=== PATIENT | female | born 2000 | race Caucasian/White ===

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

== ENCOUNTER 2023-08-17 10:00 | Outpatient (REF) | payer MEDICAID, SELFPAY ==
[2023-08-17 11:24] LABS: MANUAL DIFF FLAG NO
[2023-08-17 11:31] LABS: Basophils Percent Auto 0.6 % (0-2); Eosinophils Percent Auto 0.4 % (0-4); Hematocrit 39.9 % (37.0-47.0); Hemoglobin 13.7 g/dl (12.0-16.0); Imm Gran Abs Auto 0.02 X10*3/uL (0.00-0.03); Imm Gran Pct Auto 0.3 % (0.0-0.4); Lymphocytes Absolute Auto 1.6 X10*3/uL (1.2-4.9); Lymphocytes Percent Auto 22.8 % (20-40); Mean Corpuscular HGB Conc 34.3 g/dl (31.0-35.0); Mean Corpuscular Hemoglobin 31.4 pg (27.0-33.0); Mean Corpuscular Volume 91.3 fL (80.0-98.0); Mean Platelet Volume 9.8 fL (9.4-12.3); Monocytes Absolute Auto 0.5 X10*3/uL (0.1-1.2); Monocytes Percent Auto 7.5 % (2-11); Neutrophils Absolute Auto 4.9 x10*3/uL (2.0-8.3); Neutrophils Percent Auto 68.4 % (45-73); Platelet Count 211 X10*3/uL (160-400); Red Blood Count 4.37 X10*6/uL (4.20-5.50); Red Cell Distribution Width 11.9 % (11.0-16.0); White Blood Count 7.1 X10*3/uL (4.8-10.8)
[2023-08-17 11:40] LABS: Estimated Average Glucose 97 mg/dL
[2023-08-17 12:05] LABS: Syphilis Screen Nonreactive (Nonreactive)
[2023-08-17 12:06] LABS: HBS Num1 0.96 mIU/mL (0-7.99); HBc Num1 0.09 S/CO (0.00-0.79); HBsAGNum1 0.28 S/CO (0.00-0.99); HIV AB/AG Nonreactive (Nonreactive); HIV Num 1 0.07 S/CO (0.00-0.99); Hepatitis B Core Antibody Nonreactive (Nonreactive); Hepatitis B Surface Antigen Negative (Negative); ~HepC Num1 0.08 S/CO (0.00-0.79); ~Hepatitis B Surface Antibody NONREACTIVE (Nonreactive); ~Hepatitis C Antibody Nonreactive (Nonreactive)
[2023-08-17 12:09] LABS: Alanine Aminotransferase 12 U/L (0-31); Albumin Level 4.6 g/dL (3.5-5.0); Alkaline Phosphatase 62 U/L (39-117); Anion Gap 11 (12-20); Aspartate Amino Transferase 14 U/L (5-31); Blood Urea Nitrogen 11 mg/dL (9-16); Calcium 9.7 mg/dL (8.4-10.2); Carbon Dioxide 26 mmol/L (22-29); Chloride 105 mmol/L (96-108); Estimated Glomerular Filt Rate > 60; Glucose Random 85 mg/dL (60-115); Potassium 3.7 mmol/L (3.3-5.1); Sodium 138 mmol/L (135-145); TSH reflex Free T4 1.71 uIU/mL (0.32-4.0); Total Protein 7.5 g/dL (6.5-8.0)
[2023-08-17 13:18] LABS: CT PCR NOT DETECTED (Not Detect.); NG PCR NOT DETECTED (Not Detect.)
== END 2023-08-17 10:01 | disposition home or self-care (01) ==
LOC: HO.HHCL 10:00
PROVIDERS: Visit Provider Student in an Organized Health Care Education/Training Program
DX: Z00.00 Encounter for general adult medical examination without abnormal findings (principal); Z11.3 Encounter for screening for infections with a predominantly sexual mode of transmission
CPT/HCPCS: 0353U; 80053; 83036; 84443; 85025; 86704; 86706; 86780; 86803; 87340; 87389

== ENCOUNTER 2023-08-17 16:05 | Outpatient (REF) | payer MEDICAID, SELFPAY ==
[2023-08-18 02:45] LABS: CT PCR NOT DETECTED (Not Detect.); NG PCR NOT DETECTED (Not Detect.)
== END 2023-08-17 16:06 | disposition home or self-care (01) ==
LOC: HO.LNP 16:05
PROVIDERS: Visit Provider Student in an Organized Health Care Education/Training Program
DX: Z00.00 Encounter for general adult medical examination without abnormal findings (principal); Z11.3 Encounter for screening for infections with a predominantly sexual mode of transmission
CPT/HCPCS: 0353U

== ENCOUNTER 2023-10-05 12:35 | Outpatient (REF) | payer MEDICAID, SELFPAY ==
[2023-10-07 03:08] LABS: Rubella IgG Antibody 2.15 Index
== END 2023-10-05 12:36 | disposition home or self-care (01) ==
LOC: HO.CHCLDS 12:35
PROVIDERS: Visit Provider Registered Nurse
DX: Z00.00 Encounter for general adult medical examination without abnormal findings (principal)
CPT/HCPCS: 36415; 86735; 86762; 86765; 86787

== ENCOUNTER → 2023-10-13 14:26 | Outpatient (BNVA) | payer OTHER, SELFPAY | PROVIDERS: PCP Registered Nurse; Visit Provider Physician Assistant Medical | DX: S29.012A Strain of muscle and tendon of back wall of thorax, initial encounter (principal); X50.0XXA Overexertion from strenuous movement or load, initial encounter | CPT/HCPCS: 99203 ==

== ENCOUNTER → 2023-10-16 11:42 | Outpatient (BNVA) | payer OTHER, SELFPAY | PROVIDERS: PCP Registered Nurse; Visit Provider Physician Assistant Medical | DX: S29.012A Strain of muscle and tendon of back wall of thorax, initial encounter (principal); X58.XXXA Exposure to other specified factors, initial encounter | CPT/HCPCS: 99213 ==

== ENCOUNTER 2023-10-24 11:53 | Outpatient (RCR) | payer MEDICAID, SELFPAY ==
--- NOTE | 2023-10-24 14:04 | MHC.PT.EP ---
[facility] [place] Office [place] Office [place] Office [address] Ángel Vela [address] [phone] F: [phone] F: [phone] F: [phone] F: [phone] Physical Therapy Plan of Care Date of Evaluation: 10/24/23 Date of Surgery: N/A Diagnosis: chronic thoracic back pain (RL) Assessment: pt is a 23 y/o female presenting to physical therapy w/ referring diagnosis of chronic thoracic pain. Impairments include pain, decreased range of motion, decreased strength, impaired functional mobility, impaired postural awareness, and altered ambulation mechanics. pt is a good candidate for skilled PT due to age, potential remediation of impairments, typical disease/condition progression and prognosis, comorbidities, and motivation. pt would benefit from skilled PT intervention to provide a tailored strengthening and stretching exercise program, functional training, gait training, postural re-training, neuromuscular re-education, modalities as needed for pain, equipment safety demonstration. Frequency and Duration: The patient will be seen 2x/wk for 5 wks Short Term Goals: pt will be I w/ HEP to promote self-management of condition. pt will improve thoracolumbar AROM rotation to at least 75% to promote ease w/ work-related tasks. Graphotype Operator Goals: pt will demo neutral spine w/ lifting w/o verbal cueing to promote neutral spine w/ patient care activities at work (transfers, boosting, etc.) pt will improve B middle trap and rhomboid strength by at least 1 MMT grade to promote ease in prolonged standing for improved ADL tolerance. Treatment Plan: Modalities to reduce pain, spasms and effusion. Manual therapy to restore motion and function. Therapeutic exercise to improve strength and flexibility. Neuromuscular re-education for posture and balance. Therapeutic activities to return to functional activities of daily living. Electronically signed by: Herminia Mohamud PT, DPT Please sign and return to therapist. Thank you for your referral.
--- NOTE | 2023-11-03 13:46 | MHC.PT.DC ---
[facility] [place] Office [place] Office [place] Office [address] Ángel Vela [address] [phone] F: [phone] F: [phone] F: [phone] F: [phone] Physical Therapy Discharge Report Diagnosis: chronic thoracic back pain (RL) Date of Surgery: N/A Date of Evaluation: 10/24/23 Date of Discharge: 11/03/23 Treatments to Date: 1 Cancellations to Date: 0 No Shows to Date: 3 Discharge Status: Visit Non-compliance Discharge Summary: Pt attended PT eval only. No showed three consecutive. D/C due to non-compliance. Electronically signed by: Herminia Mohamud PT, DPT Please sign and return to therapist. Thank you for your referral.
== END 2023-11-03 13:46 | disposition home or self-care (01) ==
LOC: HO.PT 11:53
PROVIDERS: PCP Registered Nurse; Visit Provider Registered Nurse
DX: M54.6 Pain in thoracic spine (principal); G89.29 Other chronic pain
CPT/HCPCS: 97140; 97161

== ENCOUNTER 2024-05-28 17:27 | Outpatient (REF) | payer MEDICAID, SELFPAY ==
--- OUTSIDE RECORDS SUMMARY | 2024-05-28 19:33 | XMS_ITS | Encounter Summary ---
Author Organization [employer] Address [address] [place] [address] Care Team Providers Care Jigger Artisan Name Role Phone Imelda Monroy GUIDE RAIL CLEANER Primary Care Provider [phone] Encounter Details Date Type Department Care Team (Latest Contact Info) Description 05/28/2024 Travel Social History Tobacco Use Types Packs/Day Years Used Date Smoking Tobacco: Never Smokeless Tobacco: Never Alcohol Use Standard Drinks/Week Comments Never 0 (1 standard drink = 0.6 oz pur e alcohol) Depression Answer Date Recorded Patient Health Questionnaire-9 Score 5 01/22/2024 Patient Health Questionnaire-9 Score 5 01/22/2024 Last PHQ-9: Questionnaire Data Not on file 1 03/23/2023 Housing Stability Answer Date Recorded What is your housing situation today? I have kiley núñez 01/23/[address] you li ve. Do you have problems with any of the following? None of the above 01/23/2023 Food Insecurity Answer Date Recorded Within the past 12 months, y ou worried that your food would run out before you got money to buy more: Never True 01/23/2023 Within the past 12 months,th e food you bought just didn't last and you didn't have enough money to get more: Never True 08/2022 Transportation Answer Date Recorded In the past 12 months, has l ack of transportation kept you from medical appts, meetings, work or from getting things needed for daily living? No 01/23/2023 Utilities Answer Date Recorded In the past 12 months, has t he electric, gas, oil or water company threatened to shut off services in your home? No 01/23/2023 Depression Answer Date Recorded Patient Health Questionnaire-2 Score 0 01/22/2024 Comments Unknown Sex and Gender Information Value Date Recorded Sex Assigned at Female 01/17/2022 10:17 AM EDT Legal Sex Female 10:17 AM EDT Gender Identity Female 01/17/2022 10:17 AM EDT Sexual Orientation Straight 01/17/2022 10 :17 AM EDT documented as of this encounter Plan of Treatment Not on file documented as of this encounter Visit Diagnoses Not on filedocumented in this encounter Additional Health Concerns Assessment Noted Time PHQ-9 Depression Total Score: 5 01/22/20 24 3:40 PM EST documented as of this encounter Care Teams Jigger Artisan Relationship Specialty Start Date End Date Imelda Monroy FNP [address] [place] [address] PCP - General Family Medicine 06/07/21 documented as of this encounter
--- OUTSIDE RECORDS SUMMARY | 2024-05-28 19:33 | XMS_ITS | Encounter Summary ---
Author Organization [employer] Address [address] [facility] [address] [place] [address] Care Team Providers Care Assembler Installer General Name Role Phone Imelda Monroy Primary Care Provider [phone] Reason for Visit * Reason Onset Date Comments Lab Orders 09/14/2023 Encounter Details Date Type Department Care Team ([facility] st Contact Info) Description 09/14/2023 Telephone [facility] [address] [place], [place] [phone] Imelda Monroy FNP [address] [place] [address] Lab Orders Social History Tobacco Use Types Packs/Day Years Used Date Smoking Tobacco: Never Smokeless Tobacco: Never Alcohol Use Standard Drinks/Week Comments Never 0 (1 standard drink = 0.6 oz pur e alcohol) Depression Answer Date Recorded Patient Health Questionnaire-9 Score 3 08/17/2023 Patient Health Questionnaire-9 Score 3 08/17/2023 Last PHQ-9: Questionnaire Data Not on file 0 08/17/2023 Housing Stability Answer Date Recorded What is [...] Date Recorded Patient Health Questionnaire-2 Score 0 08/17/2023 Comments Unknown Sex and Gender Information Value Date Recorded Sex Assigned at Female 01/17/2022 10:17 AM EDT Legal Sex Female 10:17 AM EDT Gender Identity Female 01/17/2022 10:17 AM EDT Sexual Orientation Straight 01/17/2022 10 :17 AM EDT documented as of this encounter Miscellaneous Notes * Telephone Encounter - Wing Ania RN - 09/15/2023 1:35 PM EDT Tc to pt regarding clarification on what blood test she is requesting. Unable to reach pt, left message for pt to call back. * Telephone Encounter - Lesly Akhtar - 09/14/2023 3:53 PM EDT Tc from pt requesting a blood titer test. Please contact pt at [phone] documented in this encounter Plan of Treatment Not on file documented as of this encounter Visit Diagnoses Not on filedocumented in this encounter Additional Health Concerns Assessment Noted Time PHQ-9 Depression Total Score: 3 08/17/19 24 9:09 AM EDT documented as of this encounter Care Teams Assembler Installer General Relationship Specialty Start Date End Date Imelda Monroy FNP [address] [place] [address] PCP - General Family Medicine 06/07/21 documented as of this encounter
--- OUTSIDE RECORDS SUMMARY | 2024-05-28 19:33 | XMS_ITS | Encounter Summary ---
Author Organization [employer] Address [address] [place] [address] Care Team Providers Care Deposit Clerk Name Role Phone Imelda Monroy ROOFING PLANT SUPERVISOR Primary Care Provider [phone] Encounter Details Date Type Department Care Team (Latest Contact Info) Description 05/28/2024 2:45 PM EDT Procedure Visit [facility]INE [address] [place], [place] [phone] Elly Aguilar CNM [address] [place] [address] Cervical cancer screening (Primary Dx); Screening examination for venereal disease; Pelvic pain Social History Tobacco Use Types Packs/Day Years [...] AM EDT documented as of this encounter Last Filed Vital Signs Vital Sign Reading Time Taken Comments Blood Pressure 129/79 05/28/2024 2:46 PM EDT Pulse 99 05/28/2024 2:46 PM EDT Temperature 36.4 ??C (97.5 ??F) 05/28/2024 2:46 PM ED T Respiratory Rate 18 05/28/2024 2:46 PM EDT Oxygen Saturation 100% 05/28/2024 2:46 PM EDT Inhaled Oxygen Concentration - - Weight 47.2 kg (104 lb) 05/28/2024 2:46 PM EDT Height - - Body Mass Index 19.42 01/22/2024 1:07 PM EST documented in this encounter Progress Notes * Elly Aguilar CNM - 05/28/2024 2:45 PM EDT Subjective Patient ID: Emma Pinedo is a 24 y.o. female who presents for pap Here for initial pap. Agrees to pap based STI testing today. Notes occasional cramping that doesn'tcorrelate with menses. No other symptoms. Gonorrhea/Chlamydia, HIV, syphilis, Hep C neg 07/2023. 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 Received HPV and HBV vaccine series. 1 AMAB partner x 5 years, no safety concerns. Not planning in the next year. Using condoms, happy with method. Review of Systems Gastrointestinal: Negative for constipation, diarrhea, nausea and vomiting. Genitourinary: Positive for pelvic pain. Negative for dyspareunia, dysuria, frequency, genital sores, hematuria, menstrual problem, urgency, vaginal bleeding, vaginal discharge and vaginal pain. No abnormal pap, no abnormal bleeding, no breast pain, no breast mass, no nipple discharge Objective BP 129/79 Pulse 99 Temp 97.5 ??F (36.4 ??C) (Temporal) Resp 18 Wt 104 lb (47.2 kg) LMP 05/01/2024 (Exact Date) SpO2 100% BMI 19.42 kg/m?? Physical Exam Constitutional: Appearance: Normal appearance. Genitourinary: General: Normal vulva. Labia: Right: No rash, tenderness, lesion or injury. Left: No rash, tenderness, lesion or injury. Vagina: Normal. No signs of injury and foreign body. No vaginal discharge, erythema, tenderness, bleeding or lesions. Cervix: No cervical motion tenderness, discharge, friability, lesion, erythema, cervical bleeding or eversion. Uterus: Normal. Not enlarged and not tender. Adnexa: Right adnexa normal and left adnexa normal. Right: No mass, tenderness or fullness. Left: No mass, tenderness or fullness. Neurological: Mental Status: She is alert. Psychiatric: Mood and Affect: Mood normal. Behavior: Behavior normal. Assessment/Plan Diagnoses and all orders for this visit: Cervical cancer screening - STI testing add on (NG, CT, Trich) Initial pap today. Reviewed indications for screening and usual followup. Will contact with results. Repeat 3y if normal. Reviewed that minor cellular changes are common, and if these are noted, we will repeat pap in 1y. Pap based STI testing sent. Begin periodic clinical breast exams at 26, sooner if any breast symptoms. Report new family members with breast cancer. Screening examination for venereal disease - Pap Smear Gonorrhea/Chlamydia/trichomonas sent. Pelvic pain Benign exam today. If persistent, will order ultrasound. Happy with condoms, aware of EC and condoms on site. May return at any time if interested in starting another method or considering getting . documented in this encounter Plan of Treatment Scheduled Orders Name Type Priority Associated Diagnoses Orde r Schedule Pap Smear Pathology and Cytology Routine Screening examination for venereal disease Ordered: 05/28/2024 STI testing add on (NG, CT, Trich) Pathology and Cytology Routine Cervical cancer screening Ordered: 05/28/2024 documented as of this encounter Visit Diagnoses Diagnosis Cervical cancer screening- Primary Screening for malignant neoplasm of the cervix Screening examination for venereal disease Pelvic pain documented in this encounter Additional Health Concerns Assessment Noted Time PHQ-9 Depression Total Score: 5 01/22/20 24 3:40 PM EST documented as of this encounter Care Teams Deposit Clerk Relationship Specialty Start Date End Date Imelda Monroy FNP [address] [place] [id number] PCP - General Family Medicine 06/07/21 documented as of this encounter
--- OUTSIDE RECORDS SUMMARY | 2024-05-28 19:33 | XMS_ITS | Encounter Summary ---
Author Organization [employer] Address [address] [place] [address] Care Team Providers Care Psychiatric Clinician Name Role Phone Imelda Monroy Primary Care Provider [phone] Reason for Visit * Reason Onset Date Comments Call Back Request 07/04/2023 Encounter Details Date Type Department Care Team ([facility] st Contact Info) Description 07/04/2023 Telephone [facility] [address] [place] [address] Imelda Monroy FNP [address] [place] [address] Call Back Request Social History Tobacco Use Types Packs/Day Years Used Date Smoking Tobacco: Never Smokeless Tobacco: Never Alcohol Use Standard Drinks/Week Comments Never 0 (1 standard drink = 0.6 oz pur e alcohol) Housing Stability Answer Date Recorded What is [...] t he electric, gas, oil or water [employer] threatened to shut off services in your home? No 01/23/2023 Comments Unknown Sex and Gender Information Value Date Recorded Sex Assigned at Female 01/17/2022 10:17 AM EDT Legal Sex Female 10:17 AM EDT Gender Identity Female 01/17/2022 10:17 AM EDT Sexual Orientation Straight 01/17/2022 10 :17 AM EDT documented as of this encounter Miscellaneous Notes * Telephone Encounter - Filipe Coleman - 07/04/2023 12:19 PM EDT Tc from patient calling states has a missed call from [facility] in regards to a sooner PE appt however writer technical publications does not see anything documented on patients chart documented in this encounter Plan of Treatment Not on file documented as of this encounter Visit Diagnoses Not on filedocumented in this encounter Care Teams Psychiatric Clinician Relationship Specialty Start Date End Date Imelda Monroy FNP [address] [place] [id number] PCP - General Family Medicine 06/07/21 documented as of this encounter
--- OUTSIDE RECORDS SUMMARY | 2024-05-28 19:33 | XMS_ITS | Clinical Summary ---
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 Overview (01/22/2024): Followed by [facility] Anxiety and depression 01/22/2024 Assessment & Plan (01/22/2024 2:16 PM EST): - Letter for accommodations consideration in school generated - BE scheduled 02/19/24 - Declines interest in pharmacotherapy at this time, may revisit in future PRN History of ADHD 01/22/2024 Chronic bilateral thoracic back pain 08/18/2023 Assessment & Plan (08/18/2023 5:56 PM EDT): -thoracic XR -PT referred today -tylenol prn and warm compresses when needed Health care maintenance 08/18/2023 Assessment & Plan (08/18/2023 5:56 PM EDT): -contraception: none,refuse contraceptives offered today,advised condom use -Pap smear: never-referred today -PPD 10/2022 Neg -vaccines s/p Hep A x2,hep B x3,HPV x3,Meningococcal vaccine x2, MMRx2,COVID 19 x3-refuse ,varicellax2, Tdap 02/2023 -labs x annual exam today -pt agreed to have STI testing including HIV to have for baseline --call pt w results ,pt to take paperwork to medical records to be completed Seasonal allergies 09/22/2022 Encounters Date Type Department Care Team Description 05/28/2024 2:45 PM EDT Procedure Visit [facility] [address] [place] [address] Elly Aguilar CNM Cervical cancer screening (Primary Dx); Screening examination for venereal disease; Pelvic pain 05/28/2024 Travel 03/26/2024 Telephone [facility] [address] [place] [address] Imelda Monroy FNP Nurse Triage 03/05/2024 Telephone [facility] [address] [place] [address] David Bowman MA Chart Prep 2024 1:50 PM EST Immunization [facility] [address] [place] [address] Linnea Chand LPN Encounter for immunization (Primary Dx) 2024 1:00 PM EST Office Visit [facility] [address] [place] [address] Shayan, Nanci, OD Subjective vision disturbance (Primary Dx); Dry eye; Chorioretinal scar of right eye 2024 Patient Outreach [facility] [address] [place] [address] Imelda Monroy FNP Pre-visit Planning (SDOH was completed on 07/17/2023) 2024 Travel from Last 3 Months Immunizations Name Administration Dates Next Due DTaP 10/17/2005, 3,2001,07/04,2001 HPV, Quadrivalent 06/21/2013,11/29/2011,09/19/19 12 Hep A, ped/adol, 2 dose 11/04/2014,11/04/2013 Hep B, Adolescent or Pediatric 03/26/2002,2001,2001 Hep B, adult 2024,09/18/2023,08/18/2023 Hib (HbOC) 06/03/2002,2001,2001 IPV 10/17/2005, 2,2001,05/02 Influenza injectable quadriv alent preservative free 06/02/2021,12/23/2019,12/27/2017,05/04,01/07/2016 Influenza, IIV3, injectable 02/18/2008 Influenza, Split (incl. nadine fied surface antigen) 11/29/2011 Influenza, seasonal, injecta ble, preservative free 01/08/2024 MMR 10/17/2005,03/26/2002 Meningococcal MCV4P ACYW-135 05/04/2017,06/22/19 14 PPD Test 10/21/2023,11/02/2022,06/26/2021 Pneumococcal Conjugate PCV 7 06/03/2002,09/27/19 02,2001 Tdap 03/17/2023,09/19/2011 Varicella 10/16/2006,03/26/2002 Family History Medical History Relation Name Comments Lung cancer Maternal Grandfather Breast cancer Maternal Grandmother postme nopausal Breast cancer Paternal Grandmother postme nopausal Relation Name Status Comments Maternal Grandfather Maternal Grandmother Paternal Grandmother Social History Tobacco Use Types Packs/Day Years Used Date Smoking Tobacco: Never Smokeless Tobacco: Never Tobacco Cessation:Counseling Given: Not Answered Alcohol Use Standard Drinks/Week Comments Never 0 [...] Orientation Straight 01/17/2022 10 :17 AM EDT Last Filed Vital Signs Vital Sign Reading Time Taken Comments Blood Pressure 129/79 05/28/2024 2:46 PM EDT Pulse 99 05/28/2024 2:46 PM EDT Temperature 36.4 ??C (97.5 ??F) 05/28/2024 2:46 PM ED T Respiratory Rate 18 05/28/2024 2:46 PM EDT Oxygen Saturation 100% 05/28/2024 2:46 PM EDT Inhaled Oxygen Concentration - - Weight 47.2 kg (104 lb) 05/28/2024 2:46 PM EDT Height 155.9 cm (5' 1.36 ) 01/22/2024 1:07 PM ES T Body Mass Index 19.42 01/22/2024 1:07 PM EST Plan of Treatment Health Maintenance Due Date Last Done Comments Alcohol/Substance Use Screening 2013 Pap Smear 2022 COVID-19 Vaccine ( season) 2023 05/11/2021, 12/08/2020, 11/17/2020 SDOH Screening 07/16/2024 07/17/2023 Chlamydia and Gonorrhea Screening 08/16/2024 08/17/2023, 08/17/2023 Depression Screening 01/21/2025 01/22/2024, 01/22/20 Family Planning (PISQ) 05/28/2025 05/28/2024 Tobacco Screening 05/28/2025 05/28/2024 DTaP/Tdap/Td Vaccines (8 - Td or Tdap) 03/17/2033 03/17/2023, 09/19/2011, 10/17/2005, Additional history exists Zoster Vaccines (1 of 2) 2051 RSV Patients and Patients Aged 60 years or older (1 - 1-dose 75+ series) 2076 HIB Vaccines Completed 06/03/2002, 06/18, 2001 Pneumococcal Vaccine: Pediatrics (0 to 5 Years) and At-Risk Patients (6 to 49) Years) Aged Out 06/03/2002, 2001, 2001 No longer eligible based on patient's age to complete this topic IPV Vaccines Completed 10/17/2005, 08/18, 2001, Additional history exists HPV Vaccines Completed 06/21/2013, 11/18, 09/19/2011 Hepatitis A Vaccines Completed 11/04/2014, 11/05/19 14 Meningococcal Vaccine Completed 05/04/2017, 014 HIV Screening Completed 08/17/2023 Hepatitis C Screening Completed 08/17/2023 Influenza Vaccine Completed 01/08/2024, , 12/23/2019, Additional history exists Hepatitis B Vaccines Completed 2024, 09/18/2023, 08/18/2023, Additional history exists RSV under 20 months Aged Out No longe r eligible based on patient's age to complete this topic Rotavirus Vaccines Aged Out No longer eligible based on patient's age to complete this topic Procedures Procedure Name Priority Date/Time Associated Diagnosis Comments OCT, RETINA - OU - BOTH EYES Routine 2024 1:00 PM EST Subjective vision disturbance HEPATITIS C AB W/REFL TO HCV RNA, QN, PCR Routine 08/17/2023 10:10 AM EDT Annual physical exam HIV 1/2 ANTIGEN/ANTIBODY, FOURTH GENERATION W/RFL Routine 08/17/2023 10:10 AM EDT Annual physical exam CHLAMYDIA/N. GONORRHOEAE RNA, TMA, UROGENITAL Routine 08/17/2023 10:09 AM EDT from Last 3 Months or Most Recently Relevant to Health Maintenance Results * OCT, Retina - OU - Both Eyes (2024 1:00 PM EST) Narrative Nanci Downey, OD - 03/04/2024 11:26 AM EST Right Eye Quality was good. Progression has no prior data. Left Eye Quality was good. Progression has no prior data. Notes OCT MACULA INTERPRETATION Optical Coherence Tomography Interpretation Report Measurements: OD ??OS Macula Thickness ??243 microns ??243 microns Test findings: OD: normal foveal contour, no cystoid macular edema (CME), no retinal pigment epithelium (RPE) disruption, no subretinal fluid (SRF) OS: normal foveal contour, no cystoid macular edema (CME), no retinal pigment epithelium (RPE) disruption, no subretinal fluid (SRF) Impression and Plan: No macular pathology present in either eye. us Nanci Downey OD OPHTH TOMOGRAPHY Final Result * Hepatitis C Antibody with Reflex to HCV, RNA, Quantitative, Real-Time PCR (08/17/2023 10:10 AM EDT) Hepatitis C Antibody Nonreactive Nonreactive [facility] Comment:Antibodies to HCV no t detected; does not exclude early acuteHCV infection. Blood Venous blood specimen / Unknown 08/17/2023 10:10 AM EDT 08/17/2023 11:20 AM EDT Gloria Boston MD LAB BLOOD ORDERAB LES Final Result [facility] [address] [place] [phone] * HIV-1/2 Antigen and Antibodies, Fourth Generation, with Reflexes (08/17/2023 10:10 AM EDT) HIV AB/AG Nonreactive Nonreactive [facility] Comment:HIV-1 p24 Ag and/or HIV-1/HIV-2 Ab not detected.A test result that is nonreactive does not exclude thepossibility of exposure to or infection with HIV-1 and/orHIV-2. Nonreactive results in this assay for individualswith prior exposure to HIV-1 and/or HIV-2 may be due toantigen and antibody levels that are below the limit ofdetection of this assay.The [employer] HIV Ag/Ab Combo assay result andsupplemental assay results should be interpreted inconjunction with the patient's clinical presentation,history and other laboratory results. If the results areinconsistent with clinical evidence, additional testing issuggested to confirm the result. Blood Venous blood specimen / Unknown 08/17/2023 10:10 AM EDT 08/17/2023 11:20 AM EDT us Gloria Boston MD LAB BLOOD ORDERAB LES Final Result [facility] [address] [place] [phone] * Chlamydia/N. Gonorrhoeae RNA, TMA, Urogenitial (08/17/2023 10:09 AM EDT) CT PCR NOT DETECTED Not Detect. [facility] Comment:A not detected test result does not exclude the possibilityof infection because test results can be affected byimproper specimen collection, concurrent antibiotic therapy,or the number of organisms in the specimen which may bebelow the sensitivity of the test. As with many diagnostictests, results from the Xpert CT/NG assay should beinterpreted in conjunction with other laboratory andclinical data available to the clinician.Xpert CT/NG performance has not been evaluated in patientsless than 14 years of age. The assay should not be used forthe evaluationof suspected sexual abuse or for other medico-legalindications. Additional testing is recommended in anycircumstance when false positive or false negative resultscould lead to adverse medical, social or psychologicalconsequences. NG PCR NOT DETECTED Not Detect. [facility] Comment:A not detected test result does not exclude the possibilityof infection because test results can be affected byimproper specimen collection, concurrent antibiotic therapy,or the number of organisms in the specimen which may bebelow the sensitivity of the test. As with many diagnostictests, results from the Xpert CT/NG assay should beinterpreted in conjunction with other laboratory andclinical data available to the clinician.Xpert CT/NG performance has not been evaluated in patientsless than 14 years of age. The assay should not be used forthe evaluationof suspected sexual abuse or for other medico-legalindications. Additional testing is recommended in anycircumstance when false positive or false negative resultscould lead to adverse medical, social or psychologicalconsequences. 08/17/2023 10:0 9 AM EDT 08/17/2023 11:21 AM EDT Narrative [facility] - 08/17/2023 1:19 PM EDT Urine Gloria Boston MD LAB MICROBIOLOGY - GENERAL ORDERABLES Final Result [facility] [address] [place] [phone] from Last 3 Months or Most Recently Relevant to Health Maintenance [facility] [employer] Care Teams Community Resource Consultant Relationship Specialty Start Date End Date Imelda Monroy FNP [address] [place] [id number] PCP - General Family Medicine 06/07/21
--- OUTSIDE RECORDS SUMMARY | 2024-05-28 19:33 | XMS_ITS | Encounter Summary ---
Author Organization [employer] Address [address] [place] [address] Care Team Providers Care Aged Or Disabled Carer Name Role Phone Imelda Monroy Primary Care Provider [phone] Reason for Visit * Reason Onset Date Comments Letter for School/Work 12/28/2023 Encounter Details Date Type Department Care Team ([facility] st Contact Info) Description 12/28/2023 Telephone [facility] [address] [place] [address] Imelda Monroy FNP [address] [place] [address] Letter for School/Work Social History Tobacco Use Types Packs/Day Years [...] encounter Miscellaneous Notes * Telephone Encounter - Cristela Herndon - 12/28/2023 2:51 PM EDT 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 If any questions contact pt at [phone] documented in this encounter Plan of Treatment Not on file documented as of this encounter Visit Diagnoses Not on filedocumented in this encounter Additional Health Concerns Assessment Noted Time PHQ-9 Depression Total Score: 3 08/17/19 24 9:09 AM EDT documented as of this encounter Care Teams Aged Or Disabled Carer Relationship Specialty Start Date End Date Imelda Monroy FNP [address] [place] [phone] PCP - General Family Medicine 06/07/21 documented as of this encounter
== END 2024-05-28 17:28 | disposition home or self-care (01) ==
LOC: HO.HHCLNP 17:27
PROVIDERS: Visit Provider Advanced Practice Midwife
DX: Z12.4 Encounter for screening for malignant neoplasm of cervix (principal)
CPT/HCPCS: 87491; 87591; 87661; 88175

== ENCOUNTER 2024-07-10 11:47 | Outpatient (REF) | payer MEDICAID, SELFPAY ==
[2024-07-10 13:39] LABS: Estimated Average Glucose 97 mg/dL; Hemoglobin A1C 107.3108 umol/L; Total Hemoglobin (HGBA1C) 3484.9431 umol/L
[2024-07-10 13:51] LABS: Hematocrit 37.8 % (37.0-47.0); Hemoglobin 13.1 g/dl (12.0-16.0); Mean Corpuscular HGB Conc 34.7 g/dl (31.0-35.0); Mean Corpuscular Hemoglobin 31.3 pg (27.0-33.0); Mean Corpuscular Volume 90.2 fL (80.0-98.0); Mean Platelet Volume 10.1 fL (9.4-12.3); Platelet Count 194 X10*3/uL (160-400); Red Blood Count 4.19 X10*6/uL (4.20-5.50); Red Cell Distribution Width 11.4 % (11.0-16.0); White Blood Count 5.5 X10*3/uL (4.8-10.8)
[2024-07-10 14:10] LABS: Alanine Aminotransferase 18 U/L (0-31); Albumin Level 4.4 g/dL (3.5-5.0); Alkaline Phosphatase 61 U/L (39-117); Anion Gap 9 (12-20); Aspartate Amino Transferase 18 U/L (5-31); Bilirubin Total 1.8 mg/dL (0.0-1.0); Blood Urea Nitrogen 14 mg/dL (9-16); Calcium 9.4 mg/dL (8.4-10.2); Carbon Dioxide 27 mmol/L (22-29); Chloride 106 mmol/L (96-108); Estimated Glomerular Filt Rate > 60; Glucose Random 91 mg/dL (60-115); Potassium 3.6 mmol/L (3.3-5.1); Sodium 138 mmol/L (135-145); TSH reflex Free T4 1.41 uIU/mL (0.32-4.0); Total Protein 7.2 g/dL (6.5-8.0)
--- OUTSIDE RECORDS SUMMARY | 2024-07-10 14:15 | XMS_ITS | Encounter Summary ---
Author Organization [employer] Address [address] [facility] [address] [place] [address] Care Team Providers Care Spinning Bath Person Name Role Phone Imelda Monroy Primary Care Provider Reason for Visit * Reason Onset Date Comments Call Back Request 07/04/2023 Encounter Details Date Type Department Care Team ([facility] st Contact Info) Description 07/04/2023 Telephone [facility] [address] [place] [address] Imelda Monroy FNP [address] [place] [address] Call Back Request Social History Tobacco Use [...] t he electric, gas, oil or water [employer] threatened to shut off services in your [...] calling states has a missed call from [facility] in regards to a sooner PE appt however grant writer does not see anything documented on patients chart documented in this encounter Plan of Treatment Upcoming Encounters Date Type Department Care Team (Late st Contact Info) Description 07/10/2024 2:15 PM EDT Clinical Support [facility] [address] [place] [address] documented as of this encounter Visit Diagnoses Not on filedocumented in this encounter Care Teams Spinning Bath Person Relationship Specialty Start Date End Date Imelda Monroy FNP [address] [place] [address] PCP - General Family Medicine 06/07/21 documented as of this encounter
--- OUTSIDE RECORDS SUMMARY | 2024-07-10 14:15 | XMS_ITS | Clinical Summary ---
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 Anxiety and depression 01/22/2024 [...] Encounters Date Type Department Care Team Description 07/10/2024 11:45 AM EDT Immunization [address] [address] Christy Huerta RN Encounter for immunization 07/10/2024 Orders Only [address] [address] Gloria Morgan MD 07/09/[address] [address] Imelda Monroy FNP Lab Orders 07/02/[address] [address] Emili Mann RN Paperwork/Forms 06/10/[address] [address] Elly Lamb CNM Results 06/10/2024 Orders Only [address] [address] Elly Lamb CNM Screening examination for venereal disease (Primary Dx) 06/07/[address] [address] Imelda Monroy FNP Lab Orders 05/31/2024 Population Health Risk Score [facility] () Department [address] [place] [phone] Provider, Population Health Generic 05/30/[address] [address] Imelda Monroy FNP Appointment Request 05/28/2024 2:45 PM EDT Procedure Visit [address] [address] Elly Lamb CNM Cervical cancer screening (Primary Dx); Screening examination for venereal disease; Pelvic pain 05/28/2024 Travel from Last 3 Months Immunizations Name [...] [id number] [id number]-135 05/04/2017,06/22/19 14 PPD Test 10/21/2023,11/02/2022,06/26/2021 Seek & Adore Covid-19 Vaccine 12+ 07/10/2024 Pneumococcal Conjugate PCV 7 06/03/2002,09/27/19 02,2001 Tdap [...] 01/22/2024 1:07 PM EST Plan of Treatment Upcoming Encounters Date Type Department Care Team (Late st Contact Info) Description 07/10/2024 2:15 PM EDT Clinical Support [facility] [address] [place] [address] Health Maintenance Due Date Last Done Comments Alcohol/Substance Use Screening 2013 SDOH Screening 07/16/2024 07/17/2023 Depression Screening 01/21/2025 01/22/2024, 01/22/20 24 Chlamydia and Gonorrhea Screening 05/28/2025 05/28/2024, 08/17/2023, 08/17/2023 Family Planning (PISQ) 05/28/2025 05/28/2024 Tobacco Screening 05/28/2025 05/28/2024 Pap Smear 05/29/2027 05/28/2024 DTaP/Tdap/Td Vaccines (8 - Td or [...] Completed 2024, 09/18/2023, 08/18/2023, Additional history exists COVID-19 Vaccine Completed 07/10/2024, , 12/08/2020, Additional history exists RSV under 20 months Aged Out No longe r eligible based on patient's age to complete this topic Rotavirus Vaccines Aged Out No longer eligible based on patient's age to complete this topic Procedures Procedure Name Priority Date/Time Associated Diagnosis Comments TSH W/REFLEX TO FT4 Routine 07/10/2024 1 1:51 AM EDT COMPREHENSIVE METABOLIC PANEL Routine 07/10/2024 11:51 AM EDT HEMOGLOBIN A1C Routine 07/10/2024 11:51 AM EDT CBC Routine 07/10/2024 11:51 AM EDT Annual physical exam PAP SMEAR Routine 05/28/2024 2:54 PM EDT Screening examination for venereal disease CHLAMYDIA/N. GONORRHOEAE AND T. VAGINALIS RNA, QUAL,TMA Routine 05/28/2024 2:04 PM EDT Cervical cancer screening HEPATITIS C AB W/REFL TO HCV RNA, QN, PCR Routine 08/17/2023 10:10 AM EDT Annual physical exam HIV 1/2 ANTIGEN/ANTIBODY, FOURTH GENERATION W/RFL Routine 08/17/2023 10:10 AM EDT Annual physical exam from Last 3 Months or Most Recently Relevant to Health Maintenance Results * TSH with Reflex to Free T4 (07/10/2024 11:51 AM EDT) TSH reflex Free T4 1.41 0.32 - 4.0 uIU/mL [facility] 07/10/2024 11:5 1 AM EDT 07/10/2024 1:08 PM EDT us Gloria Boston MD LAB BLOOD ORDERAB LES Final Result [facility] [address] [place] [phone] * (ABNORMAL) CBC (07/10/2024 11:51 AM EDT) White Blood Count 5.5 4.8 - 10.8 X10*3/uL [facility] Red Blood Count 4.19(L) 4.20 - 5.50 X10*6/uL [facility] Hemoglobin 13.1 12.0 - 16.0 g/dl [facility] Hematocrit 37.8 37.0 - 47.0 % [facility] Mean Corpuscular Volume 90.2 80.0 - 98.0 fL [facility] Mean Corpuscular Hemoglobin 31.3 27.0 - 33.0 pg [facility] Mean Corpuscular HGB Conc 34.7 31.0 - 35.0 g/dl [facility] Red Cell Distribution Width 11.4 11.0 - 16.0 % [facility] Platelet Count 194 160 - 400 X10*3/uL [facility] Mean Platelet Volume 10.1 9.4 - 12.3 fL [facility] NRBC Pct Auto 0.0 0.0 - 0.2 /100WBC [facility] NRBC Abs Auto 0.000 0.0 - 0.012 X10*3/uL [facility] Blood Venous blood specimen / Unknown 07/10/2024 11:51 AM EDT 07/10/2024 1:08 PM EDT us Gloria Boston MD LAB BLOOD ORDERAB LES Final Result [facility] [address] [place] [address] [phone] * Hemoglobin A1c (07/10/2024 11:51 AM EDT) Hemoglobin A1c 5.0 <6.0 % [facility] Comment:Hemoglobin A1C Refer ence Range Adults: 4.8 - 6.0 % Non diabetic: < 6.0 % Goal: < 7.0 %Additional Action Suggested: > 8.0 %Note: Hemoglobin A1c results are invalid for patients with abnormal amounts of HbF. Blood transfusions may impact the HbA1c concentration in the patient sample. Estimated Average Glucose 97 mg/dL [facility] Comment:eAG = Estimated ave rage glucose which is %A1C expressed asaverage glucose, using the formula of the F2T-SqnoxwyKimknis Glucose study (ADAG), Diabetes Care, Vol.31,#8,Oct. 2007 07/10/2024 11:5 1 AM EDT 07/10/2024 1:08 PM EDT us Gloria Boston MD LAB BLOOD ORDERAB LES Final Result [facility] [address] [place], [place] [phone] * (ABNORMAL) Comprehensive Metabolic Panel (07/10/2024 11:51 AM EDT) Sodium 138 135 - 145 mmol/L [facility] Potassium 3.6 3.3 - 5.1 mmol/L [facility] Chloride 106 96 - 108 mmol/L [facility] Carbon Dioxide 27 22 - 29 mmol/L [facility] Anion Gap 9(L) 12 - 20 [facility] Urea Nitrogen (BUN) 14 9 - 16 mg/dL [facility] Creatinine, Serum 0.72 0.5 - 1.4 mg/dL [facility] Estimated Glomerular Filt Rate >60 [facility] Comment:Chronic Kidney Disea se: Estimated GFR < 60 mL/min/[id number] Kidney Disease: Estimated GFR < 15 mL/min/1.73m2 Glucose 91 60 - 115 mg/dL [facility] Calcium 9.4 8.4 - 10.2 mg/dL [facility] Bilirubin, Total 1.8(H) 0.0 - 1.0 mg/dL [facility] Aspartate Amino Transferase 18 5 - 31 U/L [facility] Alanine Aminotransferase 18 0 - 31 U/L [facility] Total Protein 7.2 6.5 - 8.0 g/dL [facility] Albumin Level 4.4 3.5 - 5.0 g/dL [facility] Alkaline Phosphatase 61 39 - 117 U/L [facility] 07/10/2024 11:5 1 AM EDT 07/10/2024 1:08 PM EDT us Gloria Boston MD LAB BLOOD ORDERAB LES Final Result Performing Organization Address City/State/[facility] Co de Phone Number [facility] [address] [place] [phone] * Pap Smear (05/28/2024 2:54 PM EDT) Swab Cervix uteri structure / Unknown 05/28/2024 2:54 PM EDT 05/29/2024 9:10 AM EDT Narrative [facility] - 06/10/2024 8:36 AM EDT ----- ------- Name: Emma Mahmood ?Age/Sex: 24/F ? : 2000 Unit#: [id number] ?? Attend Dr: ELLY LAMB CNM ?Re05/28/24 ?Status: DEP REF ? Location: HO.HHCLNP ? Disch: ? ----- ------- SPEC : [id number] ? RECD: 05/29/24 ? STATUS: ??SOUT ? REQ NUM: [id number] ? BIENVENIDO: 05/28/24 ? SUBM DR: ELLY LAMB CNM ? ENTERED: ??05/29/24 ?SP TYPE: Pap Smr ?OTHR : ? ORDERED: ??Pap Smear ? Interpretation ?? Satisfactory for evaluation. ?? Negative for intraepithelial lesion or malignancy. ?? Mild inflammation. ?Clinical Information LMP:Unknown date Previous PAP test:Unknown date/findings Other history: Screening examination for venereal diseases ? Material Received ?? ThinPrep-Cervical ----- ------- Signed (signature on file) SABRINA Carver (ASCP) 06/10/24 0836 ? ----- ------- ? END OF REPORT ? Elly Lamb [facility] CYTOLOGY ORDERABLES F inal Result Performing Organization Address [facility] de Phone Number [facility] [address] [place] [phone] * STI testing add on (NG, CT, Trich) (05/28/2024 2:04 PM EDT) Pathologist [facility] Trichomonas (NAAT) [facility] CTNG Ref Lab [facility] Comment:TEST NOT PERFORMEDSp ecimen transport device didnot contain the collection swab. NG Ref Lab [facility] ThinPrep?? vial Cervix uteri structure / Unknown 05/28/2024 2:04 PM EDT 05/31/2024 1:00 PM EDT Narrative [facility] - 06/07/2024 1:25 PM EDT Collection Date: [id number] by: JAGRUTI Rae: Cervix Elly Lamb [facility] CYTOLOGY ORDERABLES F inal Result Performing Organization Address [facility] Co de Phone Number [facility] [address] [place] [phone] * Hepatitis C Antibody with Reflex to HCV, RNA, Quantitative, Real-Time PCR (08/17/2023 10:10 AM EDT) Pathologist [facility] Hepatitis C Antibody Nonreactive Nonreactive [facility] Comment:Antibodies to HCV no t detected; does not exclude early acuteHCV infection. Blood Venous blood specimen / Unknown 08/17/2023 10:10 AM EDT 08/17/2023 11:20 AM EDT us Gloria Boston MD LAB BLOOD ORDERAB LES Final Result Performing Organization Address [facility]/ZIP Co de Phone Number [facility] [address] [place] [phone] [phone] * HIV-1/2 Antigen and Antibodies, Fourth Generation, with Reflexes (08/17/2023 10:10 AM EDT) [facility] HIV AB/AG Nonreactive Nonreactive [facility] Comment:HIV-1 p24 Ag and/or HIV-1/HIV-2 Ab not detected.A test result that is nonreactive does not exclude thepossibility of exposure to or infection with HIV-1 and/orHIV-2. Nonreactive results in this assay for individualswith prior exposure to HIV-1 and/or HIV-2 may be due toantigen and antibody levels that are below the limit ofdetection of this assay.The fluid [employer] HIV Ag/Ab Combo assay result andsupplemental assay results should be interpreted inconjunction with the patient's clinical presentation,history and other laboratory results. If the results areinconsistent with clinical evidence, additional testing issuggested to confirm the result. Blood Venous blood specimen / Unknown 08/17/2023 10:10 AM EDT 08/17/2023 11:20 AM EDT us Gloria Boston MD LAB BLOOD ORDERAB LES Final Result Performing Organization Address [facility]/ZIP Co de Phone Number [facility] [address] [place] [address] [phone] from Last 3 Months or Most Recently Relevant to Health Maintenance Insurance [facility] C3 Care Teams Dumper Relationship Specialty Start Date End Date Imelda Monroy FNP [address] [place] [phone] PCP - General Family Medicine 06/07/21
--- OUTSIDE RECORDS SUMMARY | 2024-07-10 14:15 | XMS_ITS | Encounter Summary ---
Author Organization [employer] Address [address] [facility] [address] [address] 7[address] [place] [address] Care Team Providers Care Portfolio Consultant Name Role Phone Imelda Monroy Primary Care Provider [phone] Reason for Visit * Reason Onset Date Comments Letter for School/Work 12/28/2023 Encounter Details Date Type Department Care Team ([facility] st Contact Info) Description 12/28/2023 Telephone [facility] MEDICINE [address] [place] [address] Imelda Monroy FNP [address] [place] [address] Letter for School/Work Social History Tobacco Use [...] anxiety. If any questions contact pt at [phone] documented in this encounter Plan of Treatment Not on file documented as of this encounter Visit Diagnoses Not on filedocumented in this encounter Additional Health Concerns Assessment Noted Time PHQ-9 Depression Total Score: 3 08/17/19 24 9:09 AM EDT documented as of this encounter Care Teams Portfolio Consultant Relationship Specialty Start Date End Date Imelda Monroy FNP [address] [place] [phone] PCP - General Family Medicine 06/07/21 documented as of this encounter
--- OUTSIDE RECORDS SUMMARY | 2024-07-10 14:15 | XMS_ITS | Encounter Summary ---
Author Organization [employer] Address [address] [facility] [address] [place] [address] Care Team Providers Care Domestic Helper Name Role Phone Imelda Monroy WASTEWATER PROJECT MANAGER Primary Care Provider [phone] Encounter Details Date Type Department Care Team (Late st Contact Info) Description 07/10/2024 11:45 AM EDT Immunization [facility] MED[facility]INE [address] [place] [address] Christy Huerta RN Encounter for immunization Social History Tobacco Use Types Packs/Day Years [...] AM EDT documented as of this encounter Progress Notes * Christy Huerta RN - 07/10/2024 11:45 AM EDT Subjective Patient ID: Emma Pinedo is a 24 y.o. female who presents for COVID19 Vaccine. Pt here for COVID19 Vaccine. Per record and patient reporting indicate that patient has no allergies that contraindicate today's vaccinations. Vaccine administered in [facility]. Pt tolerated well, pt will stay for observation for 15minutes post vaccination for observation by nurse. documented in this encounter Plan of Treatment Not on file documented as of this encounter Visit Diagnoses Diagnosis Encounter for immunization documented in this encounter Additional Health Concerns Assessment Noted Time PHQ-9 Depression Total Score: 5 01/22/20 24 3:40 PM EST documented as of this encounter Care Teams Domestic Helper Relationship Specialty Start Date End Date Imelda Monroy FNP [address] [place] [phone] PCP - General Family Medicine 06/07/21 documented as of this encounter
--- OUTSIDE RECORDS SUMMARY | 2024-07-10 14:15 | XMS_ITS | Encounter Summary ---
Author Organization [employer] Address [address] [facility] 7t [place] [address] Care Team Providers Care Dust Mixer Name Role Phone Imelda Monroy Primary Care Provider [phone] Reason for Visit * Reason Onset Date Comments Lab Orders 09/14/2023 Encounter Details Date Type Department Care Team ([facility] st Contact Info) Description 09/14/2023 Telephone [facility] [address] [place], [place] [phone] Imelda Monroy FNP [address] [place] [address] Lab Orders Social History Tobacco Use Types [...] blood titer test. Please contact pt at [phone] documented in this encounter Plan of Treatment Not on file documented as of this encounter Visit Diagnoses Not on filedocumented in this encounter Additional Health Concerns Assessment Noted Time PHQ-9 Depression Total Score: 3 08/17/19 24 9:09 AM EDT documented as of this encounter Care Teams Dust Mixer Relationship Specialty Start Date End Date Imelda Monroy FNP [address] [place] [phone] PCP - General Family Medicine 06/07/21 documented as of this encounter
--- OUTSIDE RECORDS SUMMARY | 2024-07-10 14:15 | XMS_ITS | Encounter Summary ---
Author Organization [employer] Address [address] [facility] [address] [place] [address] Care Team Providers Care Civil Clerk Name Role Phone Imelda Monroy Primary Care Provider [phone] Reason for Visit * Reason Onset Date Comments Lab Orders 07/09/2024 Encounter Details Date Type Department Care Team (Late st Contact Info) Description 07/09/2024 Telephone [facility] MEDICINE [address] [place] [address] Imelda Monroy FNP [address] [place] [address] Lab Orders Social History Tobacco Use Types [...] encounter Miscellaneous Notes * Telephone Encounter - Renuka Louise RN - 07/09/2024 3:00 PM EDT Nursing appointment scheduled for 07/10/24. Pt requested lab orders for Hep B titer, T-spot, and Covid immunization. All lab orders are ordered. * Telephone Encounter - Cecilio Dunbar - 07/09/2024 1:07 PM EDT Tc from pt was advised by school to have a blood titers test. If any questions you can contact pt at [phone]. documented in this encounter Plan of Treatment Upcoming Encounters Date Type Department Care Team (Late st Contact Info) Description 07/10/2024 2:15 PM EDT Clinical Support [facility] MED & PEDS [address] [place] [phone] Scheduled Orders Name Type Priority Associated Diagnoses Orde r Schedule Hepatitis B Surface Antibody, Qualitative Lab Routine Health care maintenance Expected: 07/09/2024 (Approximate), Expires: 07/09/2025 T-SPOT??.TB Lab Routine Screening for tuberculosis Expected: 07/09/2024 (Approximate), Expires: 07/09/2025 documented as of this encounter Visit Diagnoses Diagnosis Health care maintenance Screening for tuberculosis Screening examination for pulmonary tuberculosis documented in this encounter Additional Health Concerns Assessment Noted Time PHQ-9 Depression Total Score: 5 01/22/20 24 3:40 PM EST documented as of this encounter Care Teams Civil Clerk Relationship Specialty Start Date End Date Imelda Monroy FNP [address] [place] [address] PCP - General Family Medicine 06/07/21 documented as of this encounter
--- OUTSIDE RECORDS SUMMARY | 2024-07-10 14:15 | XMS_ITS | Encounter Summary ---
Author Organization [employer] Address [address] [facility] 7t [place] [address] Care Team Providers Care Yard Switch Operator Name Role Phone Imelda Monroy WASHERETTE MACHINE OPERATOR Primary Care Provider [phone] Encounter Details Date Type Department Care Team ([facility] st Contact Info) Description 07/10/2024 Orders Only [facility] MEDICINE [address] [place] [address] Gloria Morgan MD [address] [place] [address] Social History Tobacco Use Types Packs/Day Years [...] as of this encounter Plan of Treatment Upcoming Encounters Date Type Department Care Team (Late st Contact Info) Description 07/10/2024 2:15 PM EDT Clinical Support [facility] MED & PEDS [address] [place] [address] documented as of this encounter Procedures Procedure Name Priority Date/Time Associated Diagnosis Comments TSH W/REFLEX TO FT4 Routine 07/10/2024 1 1:51 AM EDT HEMOGLOBIN A1C Routine 07/10/2024 11:51 AM EDT COMPREHENSIVE METABOLIC PANEL Routine 07/10/2024 11:51 AM EDT documented in this encounter Results * TSH with Reflex to Free T4 (07/10/2024 11:51 AM EDT) TSH reflex Free T4 1.41 0.32 - 4.0 uIU/mL [facility] 07/10/2024 11:5 1 AM EDT 07/10/2024 1:08 PM EDT us Gloria Boston MD LAB BLOOD ORDERAB LES Final Result [facility] [address] [place] [phone] * (ABNORMAL) Comprehensive Metabolic Panel (07/10/2024 11:51 AM EDT) Sodium 138 135 - 145 mmol/L [facility] Potassium 3.6 3.3 - 5.1 mmol/L [facility] Chloride 106 96 - 108 mmol/L [facility] Carbon Dioxide 27 22 - 29 mmol/L [facility] Anion Gap 9(L) 12 - 20 [facility] Urea Nitrogen (BUN) 14 9 - 16 mg/dL [facility] Creatinine, Serum 0.72 0.5 - 1.4 mg/dL [facility] Estimated Glomerular Filt Rate >60 [facility] Comment:Chronic Kidney Disea se: Estimated GFR < 60 mL/min/1.00u9Uoybys Kidney Disease: Estimated GFR < 15 mL/min/1.73m2 Glucose 91 60 - 115 mg/dL [facility] Calcium 9.4 8.4 - 10.2 mg/dL [facility] Bilirubin, Total 1.8(H) 0.0 - 1.0 mg/dL [facility] Aspartate Amino Transferase 18 5 - 31 U/L [facility] Alanine Aminotransferase 18 0 - 31 U/L [facility] Total Protein 7.2 6.5 - 8.0 g/dL [facility] Albumin Level 4.4 3.5 - 5.0 g/dL [facility] Alkaline Phosphatase 61 39 - 117 U/L [facility] 07/10/2024 11:5 1 AM EDT 07/10/2024 1:08 PM EDT us Gloria Boston MD LAB BLOOD ORDERAB LES Final Result [facility] [address] [place] [phone] * Hemoglobin A1c (07/10/2024 11:51 AM EDT) Hemoglobin A1c 5.0 <6.0 % [facility] Comment:Hemoglobin A1C Refer ence Range Adults: 4.8 - 6.0 % Non diabetic: < 6.0 % Goal: < 7.0 %Additional Action Suggested: > 8.0 %Note: Hemoglobin A1c results are invalid for patients with abnormal amounts of HbF. Blood transfusions may impact the HbA1c concentration in the patient sample. Estimated Average Glucose 97 mg/dL [facility] Comment:eAG = Estimated ave rage glucose which is %A1C expressed asaverage glucose, using the formula of the F4G-ThrppmyJdmistr Glucose study (ADAG), Diabetes Care, Vol.31,#8,Oct. 2007 07/10/2024 11:5 1 AM EDT 07/10/2024 1:08 PM EDT us Gloria Boston MD LAB BLOOD ORDERAB LES Final Result [facility] [address] [place] [phone] documented in this encounter Visit Diagnoses Not on filedocumented in this encounter Additional Health Concerns Assessment Noted Time PHQ-9 Depression Total Score: 5 01/22/20 24 3:40 PM EST documented as of this encounter Care Teams Yard Switch Operator Relationship Specialty Start Date End Date Imelda Monroy FNP [address] [place] [address] PCP - General Family Medicine 06/07/21 documented as of this encounter
[2024-07-11 03:54] LABS: Syphilis Screen Nonreactive (Nonreactive)
[2024-07-11 04:08] LABS: HBS Num1 525.79 mIU/mL (0-7.99); ~Hepatitis B Surface Antibody REACTIVE (Nonreactive)
[2024-07-11 04:29] LABS: HBc Num1 0.05 S/CO (0.00-0.79); HBsAGNum1 0.31 S/CO (0.00-0.99); HIV AB/AG Nonreactive (Nonreactive); HIV Num 1 0.06 S/CO (0.00-0.99); Hepatitis B Core Antibody Nonreactive (Nonreactive); Hepatitis B Surface Antigen Negative (Negative); ~HepC Num1 0.07 S/CO (0.00-0.79); ~Hepatitis C Antibody Nonreactive (Nonreactive)
[2024-07-12 22:29] LABS: TS Negative Control Passed; TS Panel A 2; TS Panel B 0; TS Positive Control Passed; TSpotTB Negative (Negative)
== END 2024-07-10 11:48 | disposition home or self-care (01) ==
LOC: HO.HHCL 11:47
PROVIDERS: Student in an Organized Health Care Education/Training Program; Visit Provider Registered Nurse
DX: Z00.00 Encounter for general adult medical examination without abnormal findings (principal); Z11.1 Encounter for screening for respiratory tuberculosis; Z11.4 Encounter for screening for human immunodeficiency virus [HIV]; Z13.1 Encounter for screening for diabetes mellitus; Z11.59 Encounter for screening for other viral diseases
CPT/HCPCS: 36415; 80053; 83036; 84443; 85027; 86481; 86704; 86706; 86780; 86803; 87340; 87389

== ENCOUNTER 2024-07-24 13:34 | Outpatient (REF) | payer MEDICAID, SELFPAY ==
[2024-07-24 14:25] LABS: Bilirubin Direct 0.4 mg/dL (0.0-0.5); Bilirubin Total 1.6 mg/dL (0.0-1.0)
== END 2024-07-24 13:35 | disposition home or self-care (01) ==
LOC: HO.CHCLDS 13:34
PROVIDERS: Visit Provider Registered Nurse
DX: R17 Unspecified jaundice (principal)
CPT/HCPCS: 36415; 82247; 82248

== ENCOUNTER 2024-08-01 15:39 | Outpatient (REF) | payer MEDICAID, SELFPAY ==
--- NOTE | ~2024-08-01 | XR_ITS ---
EXAMINATION: XR CHEST CLINICAL INFORMATION: atraumatic left chest pain COMPARISON: 07/30/2019. TECHNIQUE: 2 views of the chest were obtained. FINDINGS: The cardiac, hilar, and mediastinal contours are normal. The lungs are clear bilaterally. There is no pneumothorax or pleural effusion. There is no focal osseous or soft tissue abnormality. XR/XR chest 2V IMPRESSION: Normal chest. Electronically signed by: Antonio Osborne MD 08/01/2024 04:13 PM EDT
--- OUTSIDE RECORDS SUMMARY | 2024-08-01 16:02 | XMS_ITS | Encounter Summary ---
Author Organization [employer] Address [address] [facility] [address]t [place] [address] Care Team Providers Care Heat Treating Operator Name Role Phone Imelda Monroy Primary Care Provider [phone] Reason for Visit * Reason Onset Date Comments Lab Orders 09/14/2023 Encounter Details Date Type Department Care Team ([facility] Contact Info) Description 09/14/2023 Telephone [facility]EDS [address] [place], [place] [phone] Imelda Monroy FNP [address] [place] [address] Lab Orders Social History Tobacco Use Types [...] is your housing situation today? I have kilye núñez 01/23/[address] you [...] blood titer test. Please contact pt at [phone] documented in this encounter Plan of Treatment Not on file documented as of this encounter Visit Diagnoses Not on filedocumented in this encounter Additional Health Concerns Assessment Noted Time PHQ-9 Depression Total Score: 3 08/17/19 24 9:09 AM EDT documented as of this encounter Care Teams Heat Treating Operator Relationship Specialty Start Date End Date Imelda Monroy FNP [address] [place] [address] PCP - General Family Medicine 06/07/21 documented as of this encounter
--- OUTSIDE RECORDS SUMMARY | 2024-08-01 16:02 | XMS_ITS | Encounter Summary ---
Author Organization [employer] Address [address] [place] [address] Care Team Providers Care Foster Winder Name Role Phone Imelda Monroy Primary Care Provider [phone] Reason for Visit * Reason Onset Date Comments Call Back Request 07/04/2023 Encounter Details Date Type Department Care Team ([facility] st Contact Info) Description 07/04/2023 Telephone [facility] [address] [place] [address] Imelda Monroy FNP [address] [place] [address] Call Back Request Social History Tobacco Use [...] calling states has a missed call from [facility] in regards to a sooner PE appt however racebook writer does not see anything documented on patients chart documented in this encounter Plan of Treatment Not on file documented as of this encounter Visit Diagnoses Not on filedocumented in this encounter Care Teams Foster Winder Relationship Specialty Start Date End Date Imelda Monroy FNP [address] [place] [id number] PCP - General Family Medicine 06/07/21 documented as of this encounter
--- OUTSIDE RECORDS SUMMARY | 2024-08-01 16:02 | XMS_ITS | Encounter Summary ---
Author Organization [employer] Address [address] [place] [address] Care Team Providers Care Med Spa Manager Name Role Phone Imelda Monroy Primary Care Provider [phone] Reason for Visit * Reason Onset Date Comments Letter for School/Work 12/28/2023 Encounter Details Date Type Department Care Team ([facility] st Contact Info) Description 12/28/2023 Telephone [facility] [address] [place] [address] Imelda Monroy FNP [address] [place] [address] Letter for School/Work Social History Tobacco Use [...] anxiety. If any questions contact pt at [phone] documented in this encounter Plan of Treatment Not on file documented as of this encounter Visit Diagnoses Not on filedocumented in this encounter Additional Health Concerns Assessment Noted Time PHQ-9 Depression Total Score: 3 08/17/19 24 9:09 AM EDT documented as of this encounter Care Teams Med Spa Manager Relationship Specialty Start Date End Date Imelda Monroy FNP [address] [place] [id number] PCP - General Family Medicine 06/07/21 documented as of this encounter
--- OUTSIDE RECORDS SUMMARY | 2024-08-01 16:02 | XMS_ITS | Encounter Summary ---
Author Organization [employer] Address [address] [place] [address] Care Team Providers Care Rehab Trainer Name Role Phone Imelda Monroy ROUTE SALES SPECIALIST Primary Care Provider [phone] Encounter Details Date Type Department Care Team (Latest Contact Info) Description 07/31/2024 Travel Social History Tobacco Use Types Packs/Day [...] documented as of this encounter Care Teams Rehab Trainer Relationship Specialty Start Date End Date Imelda Monroy FNP [address] [place] [id number] PCP - General Family Medicine 06/07/21 documented as of this encounter
--- OUTSIDE RECORDS SUMMARY | 2024-08-01 16:02 | XMS_ITS | Encounter Summary ---
Author Organization [employer] Address [address] [place] [address] Care Team Providers Care Submarine Cable Equipment Technician Name Role Phone Imelda Monroy ASSEMBLED WOOD PRODUCTS REPAIRER Primary Care Provider [phone] Reason for Visit * Reason Comments Shoulder Pain Encounter Details Date Type Department Care Team ([facility] st Contact Info) Description 07/31/2024 10:40 AM EDT Office Visit [facility] [address] [place], [place] [id number] Marlo Murdock MD [address] [place], [place] [phone] Left-sided chest pain (Primary Dx); Acute pain of left shoulder Social History Tobacco Use Types Packs/Day Years [...] Sign Reading Time Taken Comments Blood Pressure 121/76 07/31/2024 10:15 AM EDT Pulse 78 07/31/2024 10:15 AM EDT Temperature 37.3 ??C (99.1 ??F) 07/31/2024 11:02 AM E DT Respiratory Rate 17 07/31/2024 10:15 AM EDT Oxygen Saturation 98% 07/31/2024 10:15 AM EDT Inhaled Oxygen Concentration - - Weight 46 kg (101 lb 6.4 oz) 07/31/2024 10:15 AM EDT Height - - Body Mass Index 18.94 01/22/2024 1:07 PM EST documented in this encounter Progress Notes * Marlo Murdock MD - 07/31/2024 10:40 AM EDTAssociated Order(s): ECG 12 lead Pre-Procedure Diagnose(s): Left-sided chest pain Post-Procedure Diagnose(s): Left-sided chest pain Subjective Patient ID: Emma Pinedo is a 24 y.o. female. HPI Yesterday Emma woke at 4 AM with medial left shoulder and adjacent left chest pain, tried Tylenol,cold compresses and went back to sleep. Pain was present again when she woke in the morning. Tried lidocaine patches, heat, ice, and Tylenol then with no relief. Had difficulty sleeping last night due to pain. This AM pain is still present. Pain is described as sharp, worse when laying down or during inspiration. No change with position of torso or with ROM of shoulder. No fever, cough, SOB. Never had similar sx. No family h/o blood clots. No recent travel, immobilization, extremity pain or swelling. Lives with boyfriend. LMP=4/18. Not using control. 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 Never smoked. Patient Active Problem List Diagnosis Seasonal allergies Chronic bilateral thoracic back pain Health care maintenance Chorioretinal scar Anxiety and depression History of ADHD The following portions of the chart were reviewed this encounter and updated as appropriate: Tobacco Allergies Meds Problems Med Hx Surg Hx Fam Hx Review of Systems Constitutional: Negative for fever. Respiratory: Negative for shortness of breath. Cardiovascular: Positive for chest pain. Gastrointestinal: Negative for abdominal pain. Musculoskeletal: Positive for arthralgias. Skin: Negative for rash. Neurological: Negative for headaches. Objective Physical Exam Constitutional: Appearance: Normal appearance. HENT: Right Ear: Tympanic membrane, ear canal and external ear normal. Left Ear: Tympanic membrane, ear canal and external ear normal. Nose: Nose normal. Mouth/Throat: Mouth: Mucous membranes are moist. Pharynx: Oropharynx is clear. Eyes: Conjunctiva/sclera: Conjunctivae normal. Pupils: Pupils are equal, round, and reactive to light. Cardiovascular: Rate and Rhythm: Normal rate and regular rhythm. Heart sounds: No murmur heard. Pulmonary: Effort: Pulmonary effort is normal. Breath sounds: Normal breath sounds. Musculoskeletal: General: Normal range of motion. Cervical back: No tenderness. Comments: Note chest or left shoulder tenderness to palpation. Patient has full range of motion of left shoulder with no pain except when she draws left arm completely across chest and completely across back. Skin: Findings: No rash. Neurological: Mental Status: She is alert. Gait: Gait is intact. Psychiatric: Mood and Affect: Mood normal. Behavior: Behavior normal. ECG 12 lead Date/Time: 07/31/2024 11:14 AM Performed by: Marlo Murdock MD Authorized by: Marlo Murdock MD Previous ECG: Previous ECG: Unavailable Interpretation: Interpretation: abnormal Details: MILES Rate: ECG rate: 73 ECG rate assessment: normal Rhythm: Rhythm: sinus rhythm Ectopy: Ectopy: none QRS: QRS axis: Normal QRS conduction: normal ST segments: ST segments: Normal T waves: T waves: normal Q waves: Abnormal Q-waves: not present Other findings: Other findings: LAE Assessment/Plan Diagnoses and all orders for this visit: Left-sided chest pain EKG: no acute findings. Chest x-ray and D-dimer ordered. Will call patient with results. If negative will treat for presumptive mechanical pain. Prescribed ibuprofen and tizanidine. Return to clinic if not improving - XR Chest 2 Views; Future - D-Dimer, Quantitative; Future - ECG 12 lead Acute pain of left shoulder As above Other orders - ibuprofen 400 MG tablet; Take 1 tablet (400 mg) by mouth every 6 (six) hours if needed for moderate pain or fever for up to 30 doses. - tiZANidine (Zanaflex) 2 MG tablet; Take 1 tablet (2 mg) by mouth every 8 (eight) hours if needed (pain) for up to 10 days. documented in this encounter Plan of Treatment Pending Results Name Type Priority Associated Diagnoses Date /Time ECG 12 lead ECG Routine Left-sided chest pain 07/31/2024 1:35 PM EDT Scheduled Orders Name Type Priority Associated Diagnoses Orde r Schedule XR Chest 2 Views Imaging Routine Left-sided chest pain Expected: 07/31/2024, Expires: 07/31/2025 D-Dimer, Quantitative Lab Routine Left-sided chest pain Expected: 07/31/2024 (Approximate), Expires: 07/31/2025 documented as of this encounter Procedures Procedure Name Priority Date/Time Associated Diagnosis Comments ECG 12-LEAD Routine 07/31/2024 1:35 PM EDT Left-sided chest pain documented in this encounter Visit Diagnoses Diagnosis Left-sided chest pain- Primary Acute pain of left shoulder documented in this encounter Additional Health Concerns Assessment Noted Time PHQ-9 Depression Total Score: 5 01/22/20 24 3:40 PM EST documented as of this encounter Care Teams Submarine Cable Equipment Technician Relationship Specialty Start Date End Date Imelda Monroy FNP [address] [place] [address] PCP - General Family Medicine 06/07/21 documented as of this encounter
--- OUTSIDE RECORDS SUMMARY | 2024-08-01 16:02 | XMS_ITS | Clinical Summary ---
Author Organization [employer] Address [address] [place] [address] Care Team Providers Care Vice President Supply Chain Name Role Phone Imelda Monroy IMPORT/EXPORT ANALYST Primary Care Provider [phone] Allergies Active Allergy Reactions Criticality Noted Date Comments Egg-Derived Products Rash Low 06/02/2021 Medications ibuprofen 400 MG tablet Take 1 tablet (400 mg) by mouth every 6 (six) hours if needed for moderate pain or fever for up to 30 doses. 30 tablet 07/31/2024 Active tiZANidine (Zanaflex) 2 MG tablet Take 1 tablet (2 mg) by mouth every 8 (eight) hours if needed (pain) for up to 10 days. 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 Overview (01/22/2024): Followed by [facility] Anxiety and depression 01/22/2024 [...] Encounters Date Type Department Care Team Description 07/31/2024 10:40 AM EDT Office Visit [facility] [address] [place] [phone] Marlo Murdock MD Left-sided chest pain (Primary Dx); Acute pain of left shoulder 07/31/2024 Travel 07/22/[address] [address] Imelda Monroy FNP Nurse Triage 07/19/[address] [address] Imelda Monroy FNP Lab Orders 07/18/2024 Telephone [facility] [address] [place] [address] Imelda Monroy FNP Results 07/18/2024 Orders Only [address] [address] Imelda Monroy FNP Elevated bilirubin (Primary Dx) 07/10/2024 11:45 AM EDT Immunization [address] [address] Christy Huerta RN Encounter for immunization 07/10/2024 Telephone [facility] [address] [place] [address] Imelda Monroy FNP No Show 07/10/2024 Orders Only [address] [address] Gloria Morgan MD 07/09/[address] [address] Imelda Monroy FNP Lab Orders 07/02/2024 Telephone [facility] [place] [address] Emili Mann RN Paperwork/Forms 06/10/2024 Telephone [facility] [place] [place], [place] [phone] Elly Lamb CNM Results 06/10/2024 Orders Only [facility] [place] [address] Elly Lamb CNM Screening examination for venereal disease (Primary Dx) 06/07/2024 Telephone [facility] [address] Imelda Monroy FNP Lab Orders 05/31/2024 Population Health Risk Score [facility] () Department [address] [place] [phone] Provider, Population Health Generic 05/30/2024 Telephone [facility] [address] Imelda Monroy FNP Appointment Request 05/28/2024 2:45 PM EDT Procedure Visit [facility] [place] [address] Elly Lamb CNM Cervical cancer screening (Primary Dx); Screening examination for venereal disease; Pelvic pain 05/28/2024 Travel from Last 3 Months Immunizations Immunization Administration Dates Next Due DTaP 10/17/2005, 3,2001,07/04,2001 [...] MCV4P [id number] 05/04/2017,06/22/19 14 PPD Test 10/21/2023,11/02/2022,06/26/2021 Pfizer Covid-19 Vaccine 12+ 07/10/2024 Pneumococcal Conjugate PCV [...] Health Questionnaire-2 Score 0 01/22/2024 Comments Unknown Intention Date Recorded No desire to become (finding) 0 05/28/2024 Sex and Gender Information Value Date Recorded [...] 6.4 oz) 07/31/2024 10:15 AM EDT Height 155.9 cm (5' 1.36 ) 01/22/2024 1:07 PM ES T Body Mass Index 18.94 01/22/2024 1:07 PM EST Plan of Treatment Health Maintenance Due Date Last Done Comments Alcohol/Substance Use Screening 2013 Meningococcal B Vaccine (1 of 2 - Standard) 2017 SDOH Screening 07/16/2024 07/17/2023 Depression Screening 01/21/2025 01/22/2024, 01/22/20 24 Chlamydia and Gonorrhea Screening 05/28/2025 05/28/2024, 08/17/2023, 08/17/2023 Family Planning (PISQ) 05/28/2025 05/28/2024 Tobacco Screening 07/31/2025 07/31/2024 Pap Smear 05/29/2027 05/28/2024 DTaP/Tdap/Td Vaccines (8 [...] 11/05/19 14 Meningococcal Vaccine Completed 05/04/2017, 014 Influenza Vaccine Completed 01/08/2024, , 12/23/2019, Additional history exists Hepatitis B Vaccines Completed 2024, 09/18/2023, 08/18/2023, Additional history exists COVID-19 Vaccine Completed 07/10/2024, , 12/08/2020, Additional history exists HIV Screening Completed 07/10/2024, 08/17/2023 Hepatitis C Screening Completed 07/10/2024, 024 RSV under 20 months Aged Out No longe r eligible based on patient's age to complete this topic Rotavirus Vaccines Aged Out No longer eligible based on patient's age to complete this topic Procedures Procedure Name Priority Date/Time Associated Diagnosis Comments ECG 12-LEAD Routine 07/31/2024 1:35 PM EDT Left-sided chest pain BILIRUBIN, TOTAL Routine 07/24/2024 1:35 PM EDT Elevated bilirubin BILIRUBIN, DIRECT Routine 07/24/2024 1:3 5 PM EDT Elevated bilirubin HEPATITIS B SURFACE ANTIGEN, EIA Routine 07/10/2024 11:51 AM EDT HIV 1/2 ANTIGEN/ANTIBODY, FOURTH GENERATION W/RFL Routine 07/10/2024 11:51 AM EDT HEPATITIS C AB W/REFL TO HCV RNA, QN, PCR Routine 07/10/2024 11:51 AM EDT HEPATITIS B CORE AB TOTAL Routine 07/10/2024 11:51 AM EDT SYPHILIS SCREEN Routine 07/10/2024 11:51 AM EDT TSH W/REFLEX TO FT4 Routine 07/10/2024 1 1:51 AM EDT COMPREHENSIVE METABOLIC PANEL Routine 07/10/2024 11:51 AM EDT HEMOGLOBIN A1C Routine 07/10/2024 11:51 AM EDT T-SPOT(R).TB Routine 07/10/2024 11:51 AM EDT Screening for tuberculosis HEPATITIS B SURFACE ANTIBODY, QUALITATIVE Routine 07/10/2024 11:51 AM EDT Health care maintenance CBC Routine 07/10/2024 11:51 AM EDT Annual physical exam PAP SMEAR Routine 05/28/2024 2:54 PM EDT Screening examination for venereal disease CHLAMYDIA/N. GONORRHOEAE AND T. VAGINALIS RNA, QUAL,TMA Routine 05/28/2024 2:04 PM EDT Cervical cancer screening from Last 3 Months Results * Bilirubin, Direct (07/24/2024 1:35 PM EDT) Bilirubin, Direct 0.4 0.0 - 0.5 mg/dL [facility] Blood Venous blood specimen / Unknown 07/24/2024 1:35 PM EDT 07/24/2024 2:09 PM EDT Imelda Monroy IMPORT/EXPORT ANALYST LAB BLOOD ORDERABLES Final Res ult Performing Organization Address [facility] Co de Phone Number [facility] [address] [place] [phone] * (ABNORMAL) Bilirubin, Total (07/24/2024 1:35 PM EDT) Bilirubin, Total 1.6(H) 0.0 - 1.0 mg/dL [facility] Blood Venous blood specimen / Unknown 07/24/2024 1:35 PM EDT 07/24/2024 2:09 PM EDT us Imelda Monroy IMPORT/EXPORT ANALYST LAB BLOOD ORDERABLES Final Res ult Performing Organization Address [facility] Co de Phone Number [facility] [address] [place] [phone] * Syphilis Screen (07/10/2024 11:51 AM EDT) Syphilis Screen Nonreactive Nonreactive [facility] 07/10/2024 11:5 1 AM EDT 07/10/2024 1:08 PM EDT Gloria Boston MD LAB BLOOD ORDERAB LES Final Result Performing Organization Address [facility] Co de Phone Number [facility] [address] [place] [phone] * T-SPOT??.TB (07/10/2024 11:51 AM EDT) T Spot TB Negative Negative [facility] Comment:A negative test resu lt does not exclude the possibilityof exposure to or infection with Mycobacteriumtuberculosis (M. tuberculosis). Patients with recentexposure to TB infected individuals exhibiting anegative T-SPOT.TB result should be considered forretesting within 6 weeks or if other relevant clinicalsymptoms indicate. Results from T-SPOT.TB testing mustbe used in conjunction with each individual'sepidemiological history, current medical status,and results of other diagnostic evaluations.The T-SPOT.TB test is qualitative and results arereported as positive, borderline, or negative, giventhat the test controls perform as expected. In linewith the Centers for Disease Control and Prevention's2010 recommendation to report quantitative measurementsalongside the qualitative result, the laboratoryprovides spot counts for informational purposes only.The T-SPOT.TB test should not be interpreted as aquantitative test. TS PANEL A 2 [facility] TS PANEL B 0 [facility] Negative Control Passed [facility] Positive Control Passed [facility] Comment:For additional infor mation, please refer tohttp://education.Ricebook/faq/KJR302(This link is being provided for informational/educational purposes only.)THIS TEST WAS PERFORMED AT:[email or web address] [id number] [place] [address]CCMUGUNKERMIT DE LUNA MD,PHD 07/10/2024 11:5 1 AM EDT 07/10/2024 1:08 PM EDT us Imelda DE ANDAP LAB BLOOD ORDERABLES Final Res ult Performing Organization Address [facility] Co de Phone Number [facility] [address] [place] [phone] * TSH with Reflex to Free T4 (07/10/2024 11:51 AM EDT) TSH reflex Free T4 1.41 0.32 - 4.0 uIU/mL [facility] 07/10/2024 11:5 1 AM EDT 07/10/2024 1:08 PM EDT us Gloria Boston MD LAB BLOOD ORDERAB LES Final Result Performing Organization Address [facility] Co de Phone Number [facility] [address] [place] [address] [phone] * Hepatitis C Antibody with Reflex to HCV, RNA, Quantitative, Real-Time PCR (07/10/2024 11:51 AM EDT) Hepatitis C Antibody Nonreactive Nonreactive [facility] Comment:Antibodies to HCV no t detected; does not exclude early acuteHCV infection. 07/10/2024 11:5 1 AM EDT 07/10/2024 1:08 PM EDT us Gloria Boston MD LAB BLOOD ORDERAB LES Final Result Performing Organization Address [facility] Co de Phone Number [facility] [address] [place] [phone] * Hepatitis B surface antigen, EIA (07/10/2024 11:51 AM EDT) Hepatitis B Surface Ag Negative Negative [facility] 07/10/2024 11:5 1 AM EDT 07/10/2024 1:08 PM EDT us Gloria Boston MD LAB BLOOD ORDERAB LES Final Result Performing Organization Address [facility] Co de Phone Number [facility] [address] [place] [phone] * Hepatitis B Core Antibody, Total (07/10/2024 11:51 AM EDT) Hepatitis B Core Antibody Nonreactive Nonreactive [facility] 07/10/2024 11:5 1 AM EDT 07/10/2024 1:08 PM EDT us Gloria Boston MD LAB BLOOD ORDERAB LES Final Result Performing Organization Address City/[facility]/ZIP Co de Phone Number [facility] [address] [place] [address] [phone] * HIV-1/2 Antigen and Antibodies, Fourth Generation, with Reflexes (07/10/2024 11:51 AM EDT) HIV AB/AG Nonreactive Nonreactive [facility] Comment:HIV-1 p24 Ag and/or HIV-1/HIV-2 Ab not detected.A test result that is nonreactive does not exclude thepossibility of exposure to or infection with HIV-1 and/orHIV-2. Nonreactive results in this assay for individualswith prior exposure to HIV-1 and/or HIV-2 may be due toantigen and antibody levels that are below the limit ofdetection of this assay.The Digital [employer] HIV Ag/Ab Combo assay result andsupplemental assay results should be interpreted inconjunction with the patient's clinical presentation,history and other laboratory results. If the results areinconsistent with clinical evidence, additional testing issuggested to confirm the result. 07/10/2024 11:5 1 AM EDT 07/10/2024 1:08 PM EDT us Gloria Boston MD LAB BLOOD ORDERAB LES Final Result Performing Organization Address [facility] Co de Phone Number [facility] [address] [place] [address] [phone] * Hepatitis B Surface Antibody, Qualitative (07/10/2024 11:51 AM EDT) ~Hepatitis B Surface Antibody REACTIVE Nonreactive [facility] Comment:REACTIVE: > 11.99 mI U/mL Blood Venous blood specimen / Unknown 07/10/2024 11:51 AM EDT 07/10/2024 1:08 PM EDT us Imelda DE ANDAP LAB BLOOD ORDERABLES Final Res ult Performing Organization Address [facility] Co de Phone Number [facility] [address] [place] [address] [phone] * (ABNORMAL) CBC (07/10/2024 11:51 AM EDT) White Blood Count 5.5 4.8 - 10.8 X10*3/uL [facility] Red Blood Count 4.19(L) 4.20 - 5.50 X10*6/uL [facility] Hemoglobin 13.1 12.0 - 16.0 g/dl [facility] Hematocrit 37.8 37.0 - 47.0 % [facility] Mean Corpuscular Volume 90.2 80.0 - 98.0 fL [facility] Mean Corpuscular Hemoglobin 31.3 27.0 - 33.0 pg [facility] Mean Corpuscular HGB Conc 34.7 31.0 - 35.0 g/dl [facility] Red Cell Distribution Width 11.4 11.0 - 16.0 % [facility] Platelet Count 194 160 - 400 X10*3/uL [facility] Mean Platelet Volume 10.1 9.4 - 12.3 fL [facility] NRBC Pct Auto 0.0 0.0 - 0.2 /100WBC [facility] NRBC Abs Auto 0.000 0.0 - 0.012 X10*3/uL [facility] Blood Venous blood specimen / Unknown 07/10/2024 11:51 AM EDT 07/10/2024 1:08 PM EDT us Gloria Boston MD LAB BLOOD ORDERAB LES Final Result [facility] [address] [place] [phone] * Hemoglobin A1c (07/10/2024 11:51 AM EDT) Hemoglobin A1c 5.0 <6.0 % [facility] Comment:Hemoglobin A1C Refer ence Range Adults: 4.8 - 6.0 % Non diabetic: < 6.0 % Goal: < 7.0 %Additional Action Suggested: > 8.0 %Note: Hemoglobin A1c results are invalid for patients with abnormal amounts of HbF. Blood transfusions may impact the HbA1c concentration in the patient sample. Estimated Average Glucose 97 mg/dL [facility] Comment:eAG = Estimated ave rage glucose which is %A1C expressed asaverage glucose, using the formula of the W5U-FrxqtkbUgspesl Glucose study (ADAG), Diabetes Care, Vol.31,#8,Oct. 2007 07/10/2024 11:5 1 AM EDT 07/10/2024 1:08 PM EDT us Gloria Boston MD LAB BLOOD ORDERAB LES Final Result [facility] [address] [place] [phone] * (ABNORMAL) Comprehensive Metabolic Panel (07/10/2024 11:51 AM EDT) Sodium 138 135 - 145 mmol/L [facility] Potassium 3.6 3.3 - 5.1 mmol/L [facility] Chloride 106 96 - 108 mmol/L [facility] Carbon Dioxide 27 22 - 29 mmol/L [facility] Anion Gap 9(L) 12 - 20 [facility] Urea Nitrogen (BUN) 14 9 - 16 mg/dL [facility] Creatinine, Serum 0.72 0.5 - 1.4 mg/dL [facility] Estimated Glomerular Filt Rate >60 [facility] Comment:Chronic Kidney Disea se: Estimated GFR < 60 mL/min/1.29e8Uakeqn Kidney Disease: Estimated GFR < 15 mL/min/1.73m2 Glucose 91 60 - 115 mg/dL [facility] Calcium 9.4 8.4 - 10.2 mg/dL [facility] Bilirubin, Total 1.8(H) 0.0 - 1.0 mg/dL [facility] Aspartate Amino Transferase 18 5 - 31 U/L [facility] Alanine Aminotransferase 18 0 - 31 U/L [facility] Total Protein 7.2 6.5 - 8.0 g/dL [facility] Albumin Level 4.4 3.5 - 5.0 g/dL [facility] Alkaline Phosphatase 61 39 - 117 U/L [facility] 07/10/2024 11:5 1 AM EDT 07/10/2024 1:08 PM EDT us Gloria Boston MD LAB BLOOD ORDERAB LES Final Result [facility] [address] [place] [phone] * Pap Smear (05/28/2024 2:54 PM EDT) Swab Cervix uteri structure / Unknown 05/28/2024 2:54 PM EDT 05/29/2024 9:10 AM EDT Narrative [facility] - 06/10/2024 8:36 AM EDT ----- ------- Name: Emma Mahmood ?Age/Sex: 24/F ? : 2000 Unit#: [id number] ?? Attend : ELLY LAMB CNM ?Re05/28/24 ?Status: DEP REF ? Location: HO.HHCLNP ? Disch: ? ----- ------- SPEC : [id number] ? RECD: 05/29/24 ? STATUS: ??SOUT ? REQ NUM: [id number] ? BIENVENIDO: 05/28/24 ? SUBM DR: ELLY [...] ----- ------- ? END OF REPORT ? [facility] Lauren [facility]TOLOGY ORDERABLES F inal Result Performing Organization Address [facility] de Phone Number [facility] [address] [place] [phone] * STI testing add on (NG, CT, Trich) (05/28/2024 2:04 PM EDT) Trichomonas (NAAT) [facility] CTNG Ref Lab [facility] Comment:TEST NOT PERFORMEDSp ecimen transport device didnot contain the collection swab. NG Ref Lab [facility] ThinPrep?? vial Cervix uteri structure / Unknown 05/28/2024 2:04 PM EDT 05/31/2024 1:00 PM EDT Narrative [facility] - 06/07/2024 1:25 PM EDT Collection Date: [id number] by: JAGRUTI Rae: Cervix Elly aLmb [facility] CYTOLOGY ORDERABLES F inal Result Performing Organization Address [facility] Co de Phone Number [facility] [address] [place] [address] [phone] from Last 3 Months Insurance [facility] C3 Care Teams Vice President Supply Chain Relationship Specialty Start Date End Date Imelda Monroy FNP [address] [place] [phone] PCP - General Family Medicine 06/07/21
[2024-08-01 16:09] LABS: D Dimer High Sensitivity < 150 NG/ML
== END 2024-08-01 15:40 | disposition home or self-care (01) ==
LOC: HO.XRAY 15:39
PROVIDERS: PCP Registered Nurse; Visit Provider Emergency Medicine
DX: R07.9 Chest pain, unspecified (principal)
CPT/HCPCS: 36415; 71046; 85379

== ENCOUNTER → 2024-08-01 15:49 | Outpatient (BNV) | payer MEDICAID, SELFPAY | PROVIDERS: PCP Registered Nurse; Visit Provider Radiology Diagnostic Radiology | DX: R07.9 Chest pain, unspecified (principal) | CPT/HCPCS: 71046 ==

== ENCOUNTER 2024-09-03 13:53 | Outpatient (AMB) | payer MEDICAID, SELFPAY ==
--- NOTE | 2024-09-03 13:54 | MHC.OFFVIS ---
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 Pt states she gets aching and worse when shes on her feet. Gas Plant Technician Required: No Accompanied by: Self / Same As Patient Allergies egg [EGG] Allergy (Unknown, Unverified 09/03/24 13:58) RASH HPI HPI LOCKSTITCHER/PCP referral for VV: Details: Emma, a pleasant 24yo female patient, is presenting today on a referral from her PCP for concerns of VV. Complaints include pain and itching over varicosities, cramping and fatigue of the lower extremities. It has been affecting their daily activities including working. It is noted in bilateral legs. 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 She states that compression socks and elevation helps. She is a nonsmoker and is not a diabetic. She states the left leg has been bothering her for about a year; the right one started appx 3m ago. Patient denies any previous venous surgery or injections. Patient denies any history of DVT/ PE. Patient denies any history of phlebitis. Trial of compression includes - elevation and compression socks, both with relief They now present for vascular evaluation regarding their varicose veins. [facility] Medical History No known health problems Surgical History H/O left wrist surgery Review of Systems Const Reports as per HPI and Denies weakness ENT Reports Normal hearing present and Denies dizziness Card Reports as per HPI, Denies chest pain, Denies chest pain at rest, Denies chest pain with activity, Denies dyspnea and Denies dyspnea on exertion Resp Reports as per HPI, Denies cough, Denies dyspnea and Denies dyspnea on exertion GI Reports as per HPI, Denies abdominal pain, Denies nausea and Denies vomiting Musc Denies numbness Skin/Breast Reports as per HPI, Denies erythema and Denies wounds Neuro Reports Normal hearing present, Denies dizziness, Denies numbness, Denies Sensory deficit (Neuro) and Denies weakness Psych Reports no additional complaints Endo Reports no additional complaints Physical Exam Const General: healthy appearing and no acute distress Orientation/consciousness: patient oriented x3 HEENT Head: Yes normal to inspection Ears: hearing grossly normal bilaterally Mouth: Normal oral and palatal mucosa present Resp Effort & Inspection: normal respiratory effort and able to speak in complete sentences Auscultation: clear to auscultation bilaterally Cardio Jugular venous distension: no JVD Rate: regular rate Rhythm: regular rhythm Heart sounds: S1 normal heart sound present and S2 normal heart sound present Bruits: no abdominal aortic bruits, no carotid bruits, no femoral bruits and no renal bruits Peripheral pulses: Peripheral pulses 2+ throughout GI Inspection: Yes normal to inspection Palpation (GI): No Abdominal aortic bruit present Skin General skin exam: no rashes or lesions noted Wounds: no wounds Hair: normal Neuro General: patient oriented x3 Cranial nerves: Yes Normal hearing present Cognition (Neuro): normal cognition Gait exam (Neuro): Normal gait present Motor exam (neuro): 5/5 motor strength present throughout Sensory Exam: No Sensory deficit (Neuro) Extrem Other: Right lower extremity: several areas of small telangiectasia noted on the medial thigh. Trace peripheral edema noted at the ankle. Palpable DP pulse. Left lower extremity: several telangietasia noted behind the knee, tender to palpation. Trace peripheral edema noted at the ankle. Palpable DP pulse. CEAP: C - 3 E - primary A - superficial P - reflux General: Yes normal to inspection, Yes full ROM, Yes capillary refill normal and Yes normal gait Assessment & Plan Assessment & Plan (1) Varicose veins of both lower extremities with inflammation: Code(s): I83.11 - Varicose veins of right lower extremity with inflammation; I83.12 - Varicose veins of left lower extremity with inflammation Category: Medical Plan: Emma is presenting today on a referral from her PCP for concerns of VV with inflammation. In short, the patient has evidence of venous insufficiency. I have discussed the pathophysiology with the patient. In addition I have provided informational material regarding venous disease to the patient. We have discussed conservative measures including compression, elevation, and exercise. We discussed the importance of continuing with using her compression socks. I have taken the liberty of ordering venous insufficiency testing with the patient. They will follow up with me after testing. The patient had an opportunity to ask questions regarding the treatment plan. All questions were answered. Imaging studies, laboratory studies and physical exam results were discussed and reviewed in detail. No major barriers to understanding were identified. The patient expressed understanding and agreement with the above treatment plan. The patient is aware they should contact our office by phone for worsening of the current condition or the appearance of new symptoms. Thank you for allowing me to participate in the vascular care of this patient. If you have any questions or concerns regarding the treatment for the above condition please do not hesitate to contact me. The office telephone contact is [phone]. This note is constructed using voice recognition software. While every effort has been made to ensure accuracy, manager hris errors may have been included. Thank you for allowing me to participate in the care of your patient. Yours sincerely, SONDRA Alcala Orders: Orders US venous duplex LE BI 1 Week I83.11 - Varicose veins of right lower extremity with inflammation, I83.12 - Varicose veins of left lower extremity with inflammation Coding Level of Care Code New Pt Level 4 (70834) Diagnoses Varicose veins of both lower extremities with inflammation I83.11; I83.12
--- OUTSIDE RECORDS SUMMARY | 2024-09-03 15:56 | XMS_ITS | Encounter Summary ---
Author Organization [employer] Address [address] [place] [address] Care Team Providers Care Boat Camp Operator Name Role Phone Imelda Monroy [employer] Primary Care Provider [phone] Encounter Details Date Type Department Care Team ([facility] st Contact Info) Description 08/05/2024 Results Follow-Up [facility] [address] [place] [address] Marlo Murdock MD [address] [place] [address] XR Chest 2 Views Social History Tobacco Use Types Packs/Day Years [...] Care Team (Late st Contact Info) Description 09/27/2024 10:30 AM EDT Office Visit [facility] [address] [place] [address] Cary Engle FNP [address] [place] [address] documented as of this encounter Visit Diagnoses Not on filedocumented in this encounter Additional Health Concerns Assessment Noted Time PHQ-9 Depression Total Score: 5 01/22/20 24 3:40 PM EST documented as of this encounter Care Teams Boat Camp Operator Relationship Specialty Start Date End Date Imelda Monroy FNP [address] [place] [address] PCP - General Family Medicine 06/07/21 documented as of this encounter
== END 2024-09-03 14:15 | disposition home or self-care (01) ==
LOC: HO.HVS 13:53
PROVIDERS: PCP Registered Nurse; Visit Provider Physician Assistant Surgical
DX: I83.11 Varicose veins of right lower extremity with inflammation (principal); I83.12 Varicose veins of left lower extremity with inflammation
CPT/HCPCS: 99204

== ENCOUNTER → 2024-09-03 13:53 | Outpatient (BNVA) | payer MEDICAID, SELFPAY | PROVIDERS: PCP Registered Nurse; Visit Provider Physician Assistant Surgical | DX: I83.11 Varicose veins of right lower extremity with inflammation (principal); I83.12 Varicose veins of left lower extremity with inflammation | CPT/HCPCS: 99212 ==

== ENCOUNTER 2024-12-31 10:10 | Outpatient (REF) | payer MEDICAID, SELFPAY ==
--- NOTE | ~2024-12-31 | US_ITS ---
EXAMINATION: US LOWER EXTREMITY VENOUS (REFLUX EXAM), BILATERAL CLINICAL INFORMATION: Varicose veins of the lower extremity with inflammation COMPARISON: None. TECHNIQUE: Color flow triplex imaging and compression Doppler was performed to evaluate both the deep and the superficial systems bilaterally. To evaluate the superficial system, the examination was performed in the upright position. Color-flow Doppler ultrasound and compression ultrasound were utilized. In addition, maneuvers were utilized to demonstrate reflux. FINDINGS: 1. DEEP VENOUS ULTRASOUND OF THE RIGHT LOWER EXTREMITY: Common Femoral Vein: Compressible, normal respiratory variation and augmented flow. Femoral Vein: Compressible, normal color flow and augmentation. Popliteal Vein: Compressible, normal augmentation. Deep Reflux: There is no evidence of reflux in the deep system in either the common femoral vein, superficial femoral or the popliteal vein. 2. SUPERFICIAL ULTRASOUND WITH DOPPLER OF RIGHT LOWER EXTREMITY: GREAT SAPHENOUS VEIN: Saphenofemoral Junction: 0.6 cm; Reflux: 0 ms Proximal Thigh: 0.3 cm; Reflux: 0 ms Mid Thigh: 0.3 cm; Reflux: 0 ms Distal Thigh: 0.1 cm; Reflux: 0 ms At Knee: 0.1 cm; Reflux: 0 ms Below Knee/Proximal Calf: 0.2 cm; Reflux: 0 ms Mid Calf: 0.1 cm; Reflux: 0 ms Ankle/Distal Calf: 0.2 cm; Reflux: 0 ms Lateral accessory GREAT SAPHENOUS VEIN: Saphenofemoral Junction: 0.2 cm; Reflux: 0 ms Mid Thigh: 0.2 cm; Reflux: 0 ms SMALL SAPHENOUS VEIN: Drainage: Thigh extension Saphenopopliteal Junction: 0.3 cm; Reflux: 0 ms Mid calf: 0.2 cm; Reflux: 0 ms Distal: 0.1 cm; Reflux: 0 ms VEIN OF GIACOMINI: Size: NA cm Reflux: NA ms PERFORATORS: None imaged VARICOSITIES > 3mm: Location: None Imaged 3. DEEP VENOUS ULTRASOUND OF THE LEFT LOWER EXTREMITY: Common Femoral Vein: Compressible, normal respiratory variation and augmented flow. Femoral Vein: Compressible, normal color flow and augmentation. Popliteal Vein: Compressible, normal augmentation. Deep Reflux: There is no evidence of reflux in the deep system in either the common femoral vein, superficial femoral or the popliteal vein. 4. SUPERFICIAL ULTRASOUND WITH DOPPLER OF LEFT LOWER EXTREMITY: GREAT SAPHENOUS VEIN: Saphenofemoral Junction: 1.0 cm; Reflux: 0 ms Proximal Thigh: 0.4 cm; Reflux: 0 ms Mid Thigh: 0.2 cm; Reflux: 0 ms Distal Thigh: 0.2 cm; Reflux: 0 ms At Knee: 0.2 cm; Reflux: 0 ms Below Knee/Proximl calf: 0.3 cm; Reflux: 0 ms Mid Calf: 0.2 cm; Reflux: 0 ms Distal Calf/Ankle: 0.2 cm; Reflux: 0 ms Lateral accessory GREAT SAPHENOUS VEIN: Saphenofemoral Junction: 0.2 cm; Reflux: 0 ms Mid Thigh: 0.1 cm; Reflux: 0 ms SMALL SAPHENOUS VEIN: Drainage: Thigh extension Saphenopopliteal Junction: 0.2 cm; Reflux: 0 ms Mid calf: 0.2 cm; Reflux: 0 ms Distal calf: 0.1 cm; Reflux: 0 ms VEIN OF GIACOMINI: Size: 0.2 Reflux: 0 PERFORATORS: None imaged VARICOSITIES > 3mm: Location: None Imaged US/US venous insuf bilat IMPRESSION: Right: No venous reflux is demonstrated. Left: No venous reflux is demonstrated. Electronically signed by: Christiano Chris MD 12/31/2024 12:22 PM EDT
--- OUTSIDE RECORDS SUMMARY | 2024-12-31 11:46 | XMS_ITS | Encounter Summary ---
Author Organization [employer] Address [address] [place] [address] Care Team Providers Care Air Filler Name Role Phone Imelda Monroy Primary Care Provider [phone] Reason for Visit * Reason Onset Date Comments Lab Orders 09/14/2023 Encounter Details Date Type Department Care Team ([facility] st Contact Info) Description 09/14/2023 Telephone [facility] [address] [place], [place] [phone] Imelda Monroy FNP [address] [place] [address] Lab Orders Social History Tobacco Use Types [...] is your housing situation today? I have kileyganesh núñez 01/23/[address] you [...] blood titer test. Please contact pt at [phone] documented in this encounter Plan of Treatment Not on file documented as of this encounter Visit Diagnoses Not on filedocumented in this encounter Additional Health Concerns Assessment Noted Time PHQ-9 Depression Total Score: 3 08/17/19 24 9:09 AM EDT documented as of this encounter Care Teams Air Filler Relationship Specialty Start Date End Date Imelda Monroy FNP [address] [place] [address] PCP - General Family Medicine 06/07/21 documented as of this encounter
--- OUTSIDE RECORDS SUMMARY | 2024-12-31 11:46 | XMS_ITS | Clinical Summary ---
Author Organization [employer] Address [address] [place] [address] [address] [place] [address] Care Team Providers Care Plaster Lather Name Role Phone Imelda Monroy THANH Primary Care Provider Allergies Active Allergy Reactions Criticality Noted Date Comments Egg Protein-Containing Drug Products Rash Low 06/02/2021 Medications ibuprofen 400 MG tablet Take 1 tablet (400 mg) by mouth every 6 (six) hours if needed for moderate pain or fever for up to 30 doses. 30 tablet 07/31/2024 Active tiZANidine (Zanaflex) 2 MG tablet Take 1 tablet (2 mg) by mouth every 8 (eight) hours if needed (pain) for up to 10 days. 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 Anxiety and depression 01/22/2024 Assessment [...] Encounters Date Type Department Care Team Description 12/02/[address] [facility] [address] [place] [address] [phone] Za Mendes RN from Last 3 Months Immunizations Immunization Administration [...] 78 07/31/2024 10:15 AM EDT Temperature 37.3 C (99.1 F) 07/31/2024 11:02 AM EDT Respiratory Rate 17 07/31/2024 10:15 AM EDT Oxygen Saturation 98% 07/31/2024 10:15 AM EDT Inhaled Oxygen Concentration - - Weight 46 kg (101 lb 6.4 oz) 07/31/2024 10:15 AM EDT Height 155.9 cm (5' 1.36 ) 01/22/2024 1:07 PM ES T Body Mass Index 18.94 01/22/2024 1:07 PM EST Plan of Treatment Health Maintenance Due Date Last Done Comments Disability Screening 2001 Alcohol/Substance Use Screening 2013 Meningococcal B Vaccine (1 of 2 - Standard) 2017 SDOH Screening 07/16/2024 07/17/2023 Influenza Vaccine (#1) 2024 , 06/02/2021, 12/23/2019, Additional history exists Depression Screening 01/21/2025 01/22/2024, 01/22/20 24 Chlamydia [...] Years) and At-Risk Patients (6 to 49) Years Aged Out 06/03/2002, 2001, 2001 No longer eligible based on patient's age to complete this topic IPV Vaccines Completed 10/17/2005, 08/18, 2001, Additional history exists HPV Vaccines Completed 06/21/2013, 11/18, 09/19/2011 Hepatitis A Vaccines Completed 11/04/2014, 11/05/19 14 Meningococcal Vaccine Completed 05/04/2017, 014 Hepatitis B Vaccines Completed 2024, 09/18/2023, 08/18/2023, [...] Procedure Name Priority Date/Time Associated Diagnosis Comments HEPATITIS C AB W/REFL TO HCV RNA, QN, PCR Routine 07/10/2024 11:51 AM EDT HIV 1/2 ANTIGEN/ANTIBODY, FOURTH GENERATION W/RFL Routine 07/10/2024 11:51 AM EDT PAP SMEAR Routine 05/28/2024 2:54 PM EDT Screening examination for venereal disease CHLAMYDIA/N. GONORRHOEAE AND T. VAGINALIS RNA, QUAL,TMA Routine 05/28/2024 2:04 PM EDT Cervical cancer screening from Last 3 Months or Most Recently Relevant to Health Maintenance Results * Hepatitis C Antibody with Reflex to HCV, RNA, Quantitative, Real-Time PCR (07/10/2024 11:51 AM EDT) Hepatitis C Antibody Nonreactive Nonreactive [facility] Comment:Antibodies to HCV no t detected; does not exclude early acuteHCV infection. 07/10/2024 11:5 1 AM EDT 07/10/2024 1:08 PM EDT us Gloria Boston MD LAB BLOOD ORDERAB LES Final Result Performing Organization Address [facility]/ZIP Co de Phone Number [facility] [address] [place] [phone] * HIV-1/2 Antigen and Antibodies, Fourth Generation, with Reflexes (07/10/2024 11:51 AM EDT) Pathologist [facility] HIV AB/AG Nonreactive Nonreactive [facility] Comment:HIV-1 p24 Ag and/or HIV-1/HIV-2 Ab not detected.A test result that is nonreactive does not exclude thepossibility of exposure to or infection with HIV-1 and/orHIV-2. Nonreactive results in this assay for individualswith prior exposure to HIV-1 and/or HIV-2 may be due toantigen and antibody levels that are below the limit ofdetection of this assay.The [employer] HIV Ag/Ab Combo assay result andsupplemental assay results should be interpreted inconjunction with the patient's clinical presentation,history and other laboratory results. If the results areinconsistent with clinical evidence, additional testing issuggested to confirm the result. 07/10/2024 11:5 1 AM EDT 07/10/2024 1:08 PM EDT us Gloria Boston MD LAB BLOOD ORDERAB LES Final Result Performing Organization Address [facility]/ZIP Co de Phone Number [facility] [address] [place] [phone] * Pap Smear (05/28/2024 2:54 PM EDT) Swab Cervix uteri structure / Unknown 05/28/2024 2:54 PM EDT 05/29/2024 9:10 AM EDT [facility] - 06/10/2024 8:36 AM EDT ----- ------- Name: Emma Mahmood Age/Sex: 24/F : 2000 Unit#: [id number] Attend Dr: ELLY LAMB CNM Re05/28/24 Status: DEP REF Location: HO.HHCLNP Disch: ----- ------- SPEC : [id number] RECD: 05/29/24 STATUS: ELENITA PARNELL NUM: [id number] BIENVENIDO: 05/28/24-[address] [facility] [address]: ELLY LAMB CNM ENTERED: 05/29/24 SP TYPE: Pap Smr [facility] : ORDERED: Pap Smear Interpretation Satisfactory for evaluation. Negative for intraepithelial lesion or malignancy. Mild inflammation. Clinical Information LMP:Unknown date Previous PAP test:Unknown date/findings Other history: Screening examination for venereal diseases Material Received ThinPrep-Cervical ----- ------- Signed (signature on file) SABRINA Carver (ASCP) 06/10/24 0836 ----- ------- [facility] CYTOLOGY ORDERABLES F inal Result Performing Organization Address [facility] de Phone Number [facility] [address] [place] [address] [phone] * STI testing add on (NG, CT, Trich) (05/28/2024 2:04 PM EDT) Trichomonas (NAAT) [facility] CTNG Ref Lab [facility] Comment:TEST NOT PERFORMEDSp ecimen transport device didnot contain the collection swab. NG Ref Lab [facility] ThinPrep vial Cervix uteri structure / Unknown 05/28/2024 2:04 PM EDT 05/31/2024 1:00 PM EDT Narrative [facility] - 06/07/2024 1:25 PM EDT Collection Date: [id number] by: JAGRUTI Rae: Cervix Elly Lamb [facility] CYTOLOGY ORDERABLES F inal Result Performing Organization Address [facility] Co de Phone Number [facility] [address] [place] [address] [phone] from Last 3 Months or Most Recently Relevant to Health Maintenance Insurance [facility] C3 Care Teams Plaster Lather Relationship Specialty Start Date End Date Imelda Monroy FNP [address] [place] [phone] PCP - General Family Medicine 06/07/21
--- OUTSIDE RECORDS SUMMARY | 2024-12-31 11:46 | XMS_ITS | Encounter Summary ---
Author Organization [employer] Address [address] [place] [address] Care Team Providers Care Radiator Repairer Name Role Phone Imelda Monroy Primary Care Provider [phone] Reason for Visit * Reason Onset Date Comments Call Back Request 07/04/2023 Encounter Details Date Type Department Care Team ([facility] st Contact Info) Description 07/04/2023 Telephone [facility] [address] [place] [address] Imelda Monroy FNP [address] [place] [address] Call Back Request Social History Tobacco Use [...] calling states has a missed call from [facility] in regards to a sooner PE appt however engineering writer does not see anything documented on patients chart documented in this encounter Plan of Treatment Not on file documented as of this encounter Visit Diagnoses Not on filedocumented in this encounter Care Teams Radiator Repairer Relationship Specialty Start Date End Date Imelda Mornoy FNP [address] [place] [phone] PCP - General Family Medicine 06/07/21 documented as of this encounter
== END 2024-12-31 10:11 | disposition home or self-care (01) ==
LOC: HO.US 10:10
PROVIDERS: PCP Registered Nurse; Visit Provider Physician Assistant Surgical
DX: I83.11 Varicose veins of right lower extremity with inflammation (principal); I83.12 Varicose veins of left lower extremity with inflammation
CPT/HCPCS: 93970

== ENCOUNTER → 2024-12-31 10:12 | Outpatient (BNV) | payer MEDICAID, SELFPAY | PROVIDERS: PCP Registered Nurse; Visit Provider Radiology Diagnostic Radiology | DX: I83.11 Varicose veins of right lower extremity with inflammation (principal) | CPT/HCPCS: 93970 ==

== ENCOUNTER 2025-02-04 14:55 | Outpatient (AMB) | payer MEDICAID, SELFPAY ==
--- NOTE | 2025-02-04 14:57 | MHC.OFFVIS ---
Intake Visit Reasons: follow up US 12/31/2024 Intake Note: Patient presents for follow up. Ultrasound was performed on 12/31/24. Patient states she has pain in her right leg. No other complains. Accompanied by: Self / Same As Patient Allergies egg (EGG) Allergy (Unknown, Verified 02/04/25 14:58) RASH HPI HPI follow up 12/31/2024: Details: The patient is a 24-year-old female presenting for a follow-up visit regarding her right calf and thigh pain. She was previously seen in August. The patient reports constant pain localized to her right calf. She denies any associated knee or ankle pain. She denies any palpable lumps or bumps in the area. The patient denies smoking and has no history of diabetes. [facility] Medical History No known health problems Surgical History H/O left wrist surgery Review of Systems Const All systems reviewed & are unremarkable except as noted in HPI and below Reports no additional complaints ENT Reports Normal hearing present Card Denies chest pain, Denies chest pain at rest, Denies chest pain with activity and Denies pedal edema Resp Denies cough GI Denies abdominal pain Musc Denies abnormal gait, Denies muscle cramps and Denies radiating pain into limb Skin/Breast Denies skin ulcer and Denies wounds Neuro Reports Normal hearing present and Denies abnormal gait Psych Reports no additional complaints Physical Exam Const General: cooperative, healthy appearing and comfortable Orientation/consciousness: oriented to person, oriented to place and oriented to time HEENT Head: Yes normal to inspection Neck Neck: Yes normal visual inspection Carotids: no bruits Chest Chest palpation & inspection: normal inspection of the chest Resp Effort & Inspection: normal respiratory effort and able to speak in complete sentences Auscultation: clear to auscultation bilaterally, no crackles, no rales, no rhonchi and no wheezes Cardio Rate: regular rate Rhythm: regular rhythm Heart sounds: S1 normal heart sound present and S2 normal heart sound present Bruits: no carotid bruits Peripheral pulses: Peripheral pulses 2+ throughout GI Inspection: Yes normal to inspection Skin Wounds: no wounds Hair: normal Neuro General: oriented to person, oriented to place and oriented to time Cranial nerves: Yes CN's II-XII intact bilaterally and Yes Normal hearing present Cognition (Neuro): normal cognition Motor exam (neuro): 5/5 motor strength present throughout Extrem Other: venous exam: No significant superficial varicosities or spider telangiectasias, minimal edema General: No clubbing, No cyanosis and No edema Psych Appearance: grossly normal Mental Status: mental status grossly normal Speech and movement: Normal speech and movement present Results Reviewed Results Reviewed: Brief summary of venous insufficiency testing is as follows: right great saphenous vein: negative right small saphenous vein: negative right accessory vein: none present left great saphenous vein: negative left small saphenous vein: negative left accessory vein: none present Please note there is no evidence of any venous aneurysms or significant tortuosity Assessment & Plan Assessment & Plan (1) Varicose veins of both lower extremities with inflammation: Code(s): I83.11 - Varicose veins of right lower extremity with inflammation; I83.12 - Varicose veins of left lower extremity with inflammation Category: Medical Plan: In short patient has right calf pain. Unclear etiology of this pain. It does not appear to be vascular in nature as her venous testing has shown to be negative in addition she has palpable arterial pulses. I do believe this is more musculoskeletal in nature. Would continue to manage this conservatively. And we did discuss use of [id number] non steroidal anti-inflammatory medications. May benefit from an orthopedic evaluation should pain persist. She will follow up with us on an as-needed basis. Thank you for allowing us to assist in her care. Plan Patient was informed and verbally consented to the use of an ambient scribe for clinic note documentation during this visit. Coding Level of Care Code Est Pt Level 4 (18647) Diagnoses Varicose veins of both lower extremities with inflammation I83.11; I83.12
== END 2025-02-04 15:20 | disposition home or self-care (01) ==
LOC: HO.HVS 14:56
PROVIDERS: PCP Registered Nurse; Visit Provider Surgery Vascular Surgery
DX: I83.11 Varicose veins of right lower extremity with inflammation (principal); I83.12 Varicose veins of left lower extremity with inflammation
CPT/HCPCS: 99214

== ENCOUNTER → 2025-02-04 14:55 | Outpatient (BNVA) | payer MEDICAID, SELFPAY | PROVIDERS: PCP Registered Nurse; Visit Provider Surgery Vascular Surgery | DX: I83.11 Varicose veins of right lower extremity with inflammation (principal); I83.12 Varicose veins of left lower extremity with inflammation | CPT/HCPCS: 99212 ==